=== PATIENT | female | born 1995 | race Caucasian/White ===

== ENCOUNTER → 2018-06-13 13:55 | Outpatient (CLI) | payer OTHER, SELFPAY ==
[2018-06-13 17:12] LABS: HIV - WCH Non-Reactive (Nonreactive)
[2018-06-13 19:45] LABS: Chlamydia Trachomatis by PCR Negative (Negative); Neisserai gonorrhoeae by PCR Negative (Negative); Probe Check PASS; Sample Adequacy Control PASS; Specimen Processing Control PASS
[2018-06-16 01:17] LABS: Rapid Plasmin Reagin (RPR) NONREACTIVE (NONREACTIVE)
[2018-06-16 03:07] LABS: HCV Quant. RNA PCR HCV Not Detected IU/mL (.)
[2018-06-16 12:45] LABS: HEPATITIS B SURFACE AG Negative (Negative); HSV 2 IgG 1.83 index (0.00-0.90)
== END ==
PROVIDERS: Family Provider Pediatrics; PCP Pediatrics; Referring Provider Obstetrics & Gynecology; Visit Provider Obstetrics & Gynecology
DX: Z11.3 Encounter for screening for infections with a predominantly sexual mode of transmission (principal)
CPT/HCPCS: 86592; 86695; 86696; 86703; 87070; 87205; 87340; 87491; 87522; 87591

== ENCOUNTER → 2018-06-30 15:44 | Outpatient (CLI) | payer OTHER, SELFPAY ==
[2018-07-07 09:52] LABS: HSV 1 IgG 1.04 index (0.00-0.90); HSV 2 IgG 1.81 index (0.00-0.90)
== END ==
PROVIDERS: Family Provider Pediatrics; PCP Pediatrics; Referring Provider Obstetrics & Gynecology; Visit Provider Obstetrics & Gynecology
DX: N76.0 Acute vaginitis (principal)
CPT/HCPCS: 36415; 86695; 86696

== ENCOUNTER → 2018-06-30 18:26 | Outpatient (CLI) | payer OTHER, SELFPAY ==
[2018-06-30 21:46] LABS: Chlamydia Trachomatis by PCR Negative (Negative); Neisserai gonorrhoeae by PCR Negative (Negative); Probe Check PASS; Sample Adequacy Control PASS; Specimen Processing Control PASS
== END ==
PROVIDERS: Family Provider Pediatrics; PCP Pediatrics; Referring Provider Obstetrics & Gynecology; Visit Provider Obstetrics & Gynecology
DX: N89.8 Other specified noninflammatory disorders of vagina (principal)
CPT/HCPCS: 87070; 87205; 87491; 87591

== ENCOUNTER 2019-02-19 23:19 | Emergency (ER) | payer OTHER, SELFPAY ==
[2019-02-19 23:19] VITALS: BP 145/83; PULSE 71; RESP 18; TEMP 36.8; O2SAT 97; BMI 53.4
--- NOTE | 2019-02-19 23:40 | ED.VIS.GEN ---
History of Present Illness Chief Complaint: Foreign Body Narrative: Patient is a 23-year-old otherwise healthy female who presents with possible vaginal foreign body. She believes she has a tampon stuck. She went to put in a new tampon today and was unable to pass it. She is uncertain if there is definitively a retained tampon or when she would have placed it although believes it was greater than 24 hours. She otherwise is without complaints. No fevers nausea vomiting abdominal pain. Past Medical History - Allergies and Home Meds Allergies/Adverse Reactions: Allergies cefprozil [From Cefzil] Allergy (Verified 02/19/19 23:21) Swelling Primary Care Physician: Damian Thomas DO [Primary Care Provider] - Past Medical History: None Surgical History: no surgical history Smoking Status: Never smoker Review of Systems All systems negative except as indicated Physical Exam Vital Signs/Narrative: Vital Signs Temp Pulse Resp BP Pulse Ox 02/19/19 23:19 98.2 F 71 18 145/83 H 97 General: Well nourished, Well developed Head: Normocephalic, Atraumatic Eyes: Perrl ENT: Moist mucous membranes Neck: Supple Cardiovascular: Regular rate, Regular rhythm Respiratory: No distress, CTA bilaterally Abdomen: Soft, Nontender : - - Normal, speculum examination revealed no foreign body, cervix was well visualized and appeared normal. Scant discharge, no active bleeding. Skin: Normal color Neurological: Alert Psychological: Normal affect ED Disposition - Plan for ED Patient: Diagnosis: Person with feared complaint, no diagnosis made, Encounter for medical screening examination Referrals: Damian Thomas DO [Primary Care Provider] -
--- NOTE | 2019-02-19 23:40 | ED.RN ---
pt states she went to place a new tampon and couldn't get the previous one out. pt states the lost tampon has been in for about 24hr.
[2019-02-20 00:32] VITALS: BP 138/82; PULSE 84; RESP 16; O2SAT 98
== END 2019-02-20 00:33 | disposition home or self-care (01) ==
LOC: ED 23:33
PROVIDERS: Emergency Provider Emergency Medicine; Family Provider Student in an Organized Health Care Education/Training Program; PCP Student in an Organized Health Care Education/Training Program
DX: Z00.00 Encounter for general adult medical examination without abnormal findings (principal); Z71.1 Person with feared health complaint in whom no diagnosis is made
CPT/HCPCS: 99282

== ENCOUNTER 2021-12-11 15:30 | Outpatient (CLI) | payer BC, SELFPAY | END 2021-12-11 23:59 | disposition home or self-care (01) | LOC: LABSPEC 15:33 | PROVIDERS: PCP Student in an Organized Health Care Education/Training Program; Visit Provider Otolaryngology | DX: J03.90 Acute tonsillitis, unspecified (principal) | CPT/HCPCS: 87070 ==

== ENCOUNTER 2023-07-03 20:30 | Emergency (ER) | payer BC, SELFPAY ==
[2023-07-03 20:30] VITALS: BP 137/93; PULSE 79; RESP 18; TEMP 36.3; O2SAT 96; BMI 51.7
[2023-07-03 21:22] LABS: Amphetamine Urine VISTA NEGATIVE (<1000 ng/mL); Barbiturate Urine VISTA NEGATIVE (< 200 ng/mL); Benzodiazepine Urine VISTA NEGATIVE (< 200 ng/mL); Cocaine Urine VISTA NEGATIVE (< 300 ng/mL); Ecstacy Urine VISTA NEGATIVE (< 500 ng/mL); Methadone Urine VISTA NEGATIVE (< 300 ng/mL); PCP Urine VISTA NEGATIVE (< 25 ng/mL); THC Urine VISTA NEGATIVE (< 50 ng/mL); Vista UDS pH Range 6
[2023-07-03 21:31] LABS: Internal QC Validated? YES +Cl - CLEAR BKGD
[2023-07-03 21:32] LABS: Pregnancy, Urine Negative Negative
[2023-07-03 21:48] LABS: Alcohol, Blood (Medical)-Serum < 3.0 mg/dL
--- NOTE | 2023-07-03 21:57 | EDS_ITS ---
HPI HPI - Psych History of Present Illness Chief Complaint: Depression Informant: patient Onset/Context/Timing Onset: Month(s) (2) Conflict: - (relationship) Timing: Continuous Narrative Narrative: Healthy 28-year-old female presents with suicidal thoughts and depression. This started 2 months ago when she and her boyfriend broke up, she discovered that he was cheating on her and she has had a hard time adjusting ever since. Father states she has been calling him a lot, she will call him every minute for an hour until he picks up, she states that she knows she needs to get over it but is having a hard time, and carson has been spending a lot of time with her family trying to figure out how she can feel better, and made the comment to them that she wished she would go to sleep and never wake up again, but she does not have a suicidal plan. She lives in [place], her parents live here locally. She has been undergoing some counseling for this, it is virtual from her home computer. [facility] Medical History (Updated 07/04/23 @ 00:[address] Isacc Prince MD) Anxiety Home Medications norethindrone 1 mg-ethinyl estradiol 20 mcg (24)-iron 75 mg (4) tablet (Rachael 24 Fe) 1 tab PO DAILY 07/03/23 [History Last Taken Unknown] escitalopram oxalate 10 mg tablet 10 mg PO DAILY #30 tabs 07/04/23 [Rx Last Taken Unknown] Allergy/AdvReac Type Severity Reaction Status Date / Time cefprozil [From Cefzil] Allergy Swelling Verified 07/03/23 20:30 Social History Smoking Status: Never smoker alcohol intake: never substance use type: does not use caffeine: Yes what type of physical activity do you participate in: walking frequency: 3-4 times per week seatbelt use: always do you feel safe at home: Yes additional social history: single- fulltime student OT ROS ROS ED Constitutional Constitutional ED: Denies chills or fever(s) Eyes Eyes: Denies change in vision or diplopia ENT ENT ED: Denies rhinorrhea or sore throat Cardiovascular Cardiovascular: Denies chest pain or palpitations Respiratory/Chest Respiratory/Chest: Denies cough or dyspnea Gastrointestinal Gastrointestinal: Denies abdominal pain, diarrhea, nausea or vomiting Genitourinary Genitourinary ED: Denies dysuria or hematuria Musculoskeletal Musculoskeletal: Denies back pain or neck pain Integumentary Denies abscess or rash Neurologic Neurologic: Denies headache(s), paresthesias or weakness Psychiatric Psychiatric: Reports depression, suicidal ideation and suicidal thoughts; Denies homicidal ideation EXAM Physical Exam Const Vital Signs: 07/03/23 20:30 07/03/23 22:00 Temperature 97.4 F L Temperature Source Temporal Pulse Rate 79 Respiratory Rate 18 18 Blood Pressure 137/93 H Blood Pressure Mean 107 Pulse Ox 96 Oxygen Delivery Method Room Air Positive well nourished and well developed General Appearance ED: well developed and NAD HEENT Reports moist mucous membranes normocephalic and atraumatic Eyes PERRL and EOMs intact bilaterally General Eye ED: Negative for scleral icterus Neck no lymphadenopathy and supple Resp normal respiratory effort and clear to auscultation bilaterally Cardio no murmurs Rate: regular rate Rhythm: regular rhythm GI non-tender and non-distended Auscultation: normoactive bowel sounds Palpation: soft Back/Spine no CVA tenderness and normal ROM Extremity normal to inspection General Extremety ED: Negative for edema General Extremity: Negative for edema Neuro oriented x3, CN's II-XII intact bilaterally, no sensory deficits noted and gait normal Sensorium / Orientation: alert Motor Exam: strength 5/5 throughout Psych mental status grossly normal, thought process normal, cooperative, speech normal, activity/motor behavior normal, denies hallucinations and denies homicidal ideation Mood & Affect: depressed Thought Content: suicidality Skin Lesions: no lesions Rashes: no rashes MDM MDM MDM Narrative Medical decision making narrative: , toxicology, alcohol negative. She is medically cleared and referred to crisis for further evaluation. Crisis came and spoke with the patient, she and I spoke with the patient and family at length. Patient was offered inpatient but she declines, she contracts for safety, mother is going to stay with her in [place] this week, and they plan on following up with psychiatry she is interested in getting started on an antidepressant. I am going to start her on escitalopram and give her the first months worth. We discussed the black box warning for suicidality and reasons to stop the medication and bring herself to medical/mental health attention. She is comfortable with that plan. Lab Data Attestation: I reviewed the patient's lab results. Labs: Laboratory Results - last 24 hr 07/03/23 07/03/23 21:00 21:05 Urine Test Negative Urine Opiates Screen NEGATIVE Urine Methadone Screen NEGATIVE Ur Barbiturates Screen NEGATIVE Ur Phencyclidine Scrn NEGATIVE Ur Amphetamines Screen NEGATIVE MDMA (Ecstasy) Screen NEGATIVE U Benzodiazepines Scrn NEGATIVE Urine Cocaine Screen NEGATIVE U Cannabinoids Screen NEGATIVE Ur Drug Screen Comment Ethyl Alcohol < 3.0 Management Discussion w/another healthcare provider: Behavioral health Discharge Plan Triage Chief Complaint: Depression ED Provider: Isacc Prince Dx/Rx/DC Orders Clinical Impression: Suicidal thoughts, Adjustment disorder Instructions: ED Adjustment Disorder Prescriptions: New escitalopram oxalate 10 mg tablet 10 mg PO DAILY Qty: 30 0RF No Action Rachael 24 Fe 1 mg-20 mcg (24)/75 mg (4) tablet 1 tab PO DAILY Referrals: Doctor,Your [Non-Staff] - As soon as possible (for reevaluation and/or referral to psychiatry) Disposition Disposition: Home, Self Care
[2023-07-03 22:00] VITALS: RESP 18
--- NOTE | 2023-07-03 22:24 | NURSING ---
CALLED CRISIS AT [phone]
== END 2023-07-04 00:51 | disposition home or self-care (01) ==
PROVIDERS: Emergency Provider Emergency Medicine; Visit Provider Emergency Medicine
DX: R45.851 Suicidal ideations (principal); F32.A Depression, unspecified; F43.20 Adjustment disorder, unspecified
CPT/HCPCS: 36415; 80307; 81025; 82077; 99282

== ENCOUNTER 2025-06-12 18:33 | Emergency (ER) | payer BC, SELFPAY ==
[2025-06-12 18:33] VITALS: BP 189/89; PULSE 91; RESP 16; TEMP 36.3; O2SAT 97; BMI 63.1
--- NOTE | 2025-06-12 21:42 | ED.RN ---
Pt's name called for placement in ED room from waiting room. Unable to locate pt. Assumed LWBS.
--- OUTSIDE RECORDS SUMMARY | 2025-06-12 22:00 | XMS RPT_ITS | CCD ---
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 Van Henry PA-C Work Phone: [facility] 04-28-2023 13:33-0400 Body weight 133.81 kg Van Henry PA-C Work Phone: [facility] 04-28-2023 13:33-0400 Diastolic blood pressure 86 mm[Hg] Van Henry PA-C Work Phone: [facility] 04-28-2023 13:33-0400 Heart rate 92 /min Van Henry PA-C Work Phone: [facility] 04-28-2023 13:33-0400 Respiratory rate 18 /min Van Henry PA-C Work Phone: [facility] 04-28-2023 13:33-0400 SaO2% (BldA) [Mass fraction] 94 % Van Henry PA-C Work Phone: [facility] 04-28-2023 13:33-0400 Systolic blood pressure 123 mm[Hg] Van Henry PA-C Work Phone: [facility] 12-11-2022 19:52-0400 Body height 167.6 cm Williams Blackmon MD Work Phone: [facility] 12-11-2022 19:52-0400 Body mass index (BMI) [Ratio] 43.58 kg/m2 Williams Blackmon MD Work Phone: [facility] 12-11-2022 19:52-0400 Body temperature 98.01 [degF] Williams Blackmon MD Work Phone: [facility] 12-11-2022 19:52-0400 Body weight 122.47 kg Williams Blackmon MD Work Phone: [facility] 12-11-2022 19:52-0400 Diastolic blood pressure 75 mm[Hg] Williams Blackmon MD Work Phone: [facility] 12-11-2022 19:52-0400 Heart rate 80 /min Williams Blackmon MD Work Phone: [facility] 12-11-2022 19:52-0400 Respiratory rate 16 /min Williams Blackmon MD Work Phone: [facility] 12-11-2022 19:52-0400 SaO2% (BldA) [Mass fraction] 97 % Williams Blackmon MD Work Phone: [facility] 12-11-2022 19:52-0400 Systolic blood pressure 113 mm[Hg] Williams Blackmon MD Work Phone: [facility] 05-14-2022 10:54-0400 Body height 167.6 cm Magalys Benjamin MD Work Phone: [facility] 05-14-2022 10:54-0400 Body mass index (BMI) [Ratio] 46.65 kg/m2 Magalys Benjamin MD Work Phone: [facility] 05-14-2022 10:54-0400 Body weight 131.09 kg Magalys Benjamin MD Work Phone: [facility] 05-14-2022 10:54-0400 Diastolic blood pressure 85 mm[Hg] Magalys Benjamin MD Work Phone: [facility] 05-14-2022 10:54-0400 Heart rate 61 /min Magalys Benjamin MD Work Phone: [facility] 05-14-2022 10:54-0400 Systolic blood pressure 124 mm[Hg] Magalys Benjamin MD Work Phone: [facility] 12-30-2021 16:35-0400 Body mass index (BMI) [Ratio] 46.48 kg/m2 Williams Blackmon MD Work Phone: [facility] 12-30-2021 16:35-0400 Body temperature 97.11 [degF] Williams Blackmon MD Work Phone: [facility] 12-30-2021 16:35-0400 Body weight 130.64 kg Williams Blackmon MD Work Phone: [facility] 12-30-2021 16:35-0400 Diastolic blood pressure 79 mm[Hg] Williams Blackmon MD Work Phone: [facility] 12-30-2021 16:35-0400 Heart rate 65 /min Williams Blackmon MD Work Phone: [facility] 12-30-2021 16:35-0400 Respiratory rate 16 /min Williams Blackmon MD Work Phone: [facility] 12-30-2021 16:35-0400 SaO2% (BldA) [Mass fraction] 99 % Williams Blackmon MD Work Phone: [facility] 12-30-2021 16:35-0400 Systolic blood pressure 116 mm[Hg] Williams Blackmon MD Work Phone: [facility] 11-26-2021 16:19-0500 Body mass index (BMI) [Ratio] 47.13 kg/m2 Kimberly Gio SCIENTIFIC PROGRAMMER Work Phone: [facility] 11-26-2021 16:19-0500 Body temperature 98.01 [degF] Kimberly Gio SCIENTIFIC PROGRAMMER Work Phone: [facility] 11-26-2021 16:19-0500 Body weight 132.45 kg Kimberly Gio SCIENTIFIC PROGRAMMER Work Phone: [facility] 11-26-2021 16:19-0500 Diastolic blood pressure 81 mm[Hg] Kimberly Gio SCIENTIFIC PROGRAMMER Work Phone: [facility] 11-26-2021 16:19-0500 Heart rate 80 /min Kimberly Gio SCIENTIFIC PROGRAMMER Work Phone: [facility] 11-26-2021 16:19-0500 Respiratory rate 16 /min Kimberly Powers SCIENTIFIC PROGRAMMER Work Phone: [facility] 11-26-2021 16:19-0500 SaO2% (BldA) [Mass fraction] 98 % Kimberly Powers SCIENTIFIC PROGRAMMER Work Phone: [facility] 11-26-2021 16:19-0500 Systolic blood pressure 127 mm[Hg] Kimberly Powers SCIENTIFIC PROGRAMMER Work Phone: [facility] 09-17-2021 14:19-0500 Body temperature 98.01 [degF] Luc Contreras DO Work Phone: [facility] 09-17-2021 14:19-0500 Heart rate 87 /min Luc Contreras DO Work Phone: [facility] 09-17-2021 14:19-0500 Respiratory rate 16 /min Luc Contreras DO Work Phone: [facility] 09-17-2021 14:19-0500 SaO2% (BldA) [Mass fraction] 98 % Luc Contreras DO Work Phone: [facility] 04-27-2021 14:41-0400 Body height 167.6 cm Magalys Benjamin MD Work Phone: [facility] 04-27-2021 14:41-0400 Body mass index (BMI) [Ratio] 47.78 kg/m2 Magalys Benjamin MD Work Phone: [facility] 04-27-2021 14:41-0400 Body weight 134.26 kg Magalys Benjamin MD Work Phone: [facility] 04-27-2021 14:41-0400 Diastolic blood pressure 74 mm[Hg] Magayls Benjamin MD Work Phone: [facility] 04-27-2021 14:41-0400 Heart rate 86 /min Magalys Benjamin MD Work Phone: [facility] 04-27-2021 14:41-0400 Systolic blood pressure 120 mm[Hg] Magalys Benjamin MD Work Phone: [facility] Encounters Encounter Date Encounter Type Care Provider Facility Start: 06-03-2025 End: 06-03-2025 ambulatory DAMIAN THOMAS Facility:[facility] Start: 06-03-2025 End: 06-03-2025 Follow-up encounter Kira Alexandershima Yen APRN.SCIENTIFIC PROGRAMMER Work Phone: [facility] [place] Start: 05-31-2025 End: 05-31-2025 ambulatory Inderjit Stewart MASTER IN CHANCERY.SCIENTIFIC PROGRAMMER Work Phone: [facility] [place] Comment on above: Heart monitor Start: 05-29-2025 End: 05-29-2025 Office outpatient visit 25 minutes Inderjit Stewart MASTER IN CHANCERY.SCIENTIFIC PROGRAMMER Work Phone: [facility] [place] Comment on above: Syncope and collapse (Primary Dx); Vaso vagal episode; Hyperlipidemia, mixed; Concussion without loss of consciousness, sequela Start: 05-29-2025 End: 05-29-2025 ambulatory DAMIAN THOMAS Facility:[facility] Start: 05-06-2025 End: 05-07-2025 Refill Blaire John MASTER IN CHANCERY.SCIENTIFIC PROGRAMMER Work Phone: [facility] [place] Comment on above: Refill Request Start: 04-24-2025 End: 04-24-2025 ambulatory [facility] Facility:[id number] Start: 04-23-2025 End: 04-23-2025 ambulatory DAMIAN THOMAS Facility:[facility] Start: 04-05-2025 End: 04-05-2025 Telephone encounter Damian Thomas DO Work Phone: [facility] [place] Comment on above: Heart monitor Start: 04-05-2025 End: 04-05-2025 ambulatory BLAIRE AGEN Facility:[facility] Start: 04-05-2025 End: 04-05-2025 Office outpatient new 45 minutes Blaire Haagen MASTER IN CHANCERY.SCIENTIFIC PROGRAMMER Work Phone: [facility] [place] Comment on above: Syncope and collapse (Primary Dx); Medication management; Elevated blood pressure reading without diagnosis of hypertension Start: 04-05-2025 End: 04-05-2025 ambulatory DAMIAN THOMAS Facility:[facility] Start: 03-29-2025 End: 04-02-2025 Refill Bandar Hoover SCIENTIFIC PROGRAMMER Work Phone: [facility] Comment on above: Generalized anxiety disorder; Major depressive disorder, recurrent, in full remission Start: 02-02-2025 ambulatory BANDAR HOOVER [facility] Start: 12-13-2024 End: 12-13-2024 Office outpatient visit 25 minutes Nilhenok Hoover SCIENTIFIC PROGRAMMER Work Phone: [facility] Comment on above: Generalized anxiety disorder (Primary Dx); Chronic posttraumatic stress disorder; Major depressive disorder, recurrent, in full remission; Major depressive disorder, recurrent episode, severe, with psychotic behavior (HCC) Start: 12-13-2024 End: 12-14-2024 ambulatory BANDAR HOOVER [facility] Start: 11-21-2024 End: 11-21-2024 Orders Only Nilhenok Hoover SCIENTIFIC PROGRAMMER Work Phone: [facility] Comment on above: MDD (major depressiv e disorder), recurrent episode, mild (Primary Dx); PORTER (generalized anxiety disorder) Start: 10-29-2024 End: 10-30-2024 Refill Curtis Gonzales SCIENTIFIC PROGRAMMER Work Phone: [facility] Start: 10-05-2024 End: 10-05-2024 Telephone encounter Inderjit Stewart APRN.SCIENTIFIC PROGRAMMER Work Phone: [facility] [place] Comment on above: Appointment Start: 09-21-2024 End: 09-21-2024 Patient encounter procedure Magalys Benjamin MD Work Phone: [facility] Start: 09-21-2024 End: 09-21-2024 Periodic preventive med est patient 18-39 yrs Magalys Benjamin MD Work Phone: [facility] Comment on above: Encounter for well w trang exam with routine gynecological exam (Primary Dx); Encounter for surveillance of contraceptive pills; Cervical cancer screening Start: 09-21-2024 End: 09-25-2024 ambulatory MAGALYS BENJAMIN [facility] Start: 09-21-2024 End: 09-25-2024 Encounter for gynecological examination (general) (routine) without abnormal findings MAGALYS BENJAMIN [facility] Start: 07-30-2024 End: 08-02-2024 Refill Magalys Benjamin MD Work Phone: [facility] Comment on above: Encounter for survei llance of contraceptive pills Start: 07-26-2024 End: 07-27-2024 Refill Albaalisson Nolantay Christian SCIENTIFIC PROGRAMMER Work Phone: [facility] Comment on above: Encounter for survei llance of contraceptive pills Start: 07-04-2024 End: 07-04-2024 Emergency department patient visit BENJY ALEXANDER [facility] Start: 06-04-2024 End: 06-04-2024 ambulatory CURTIS GONZALES [facility] Start: 06-04-2024 End: 06-04-2024 Office outpatient visit 25 minutes Curtis Gonzales SCIENTIFIC PROGRAMMER Work Phone: [facility] Comment on above: MDD (major depressiv e disorder), recurrent episode, mild (HCC) (Primary Dx); PORTER (generalized anxiety disorder); PTSD (post-traumatic stress disorder) Start: 04-24-2024 End: 04-25-2024 Refill Curtis Gonzales SCIENTIFIC PROGRAMMER Work Phone: [facility] Start: 11-29-2023 End: 11-29-2023 Office outpatient visit 25 minutes Curtis Gonzales SCIENTIFIC PROGRAMMER Work Phone: [facility] Comment on above: MDD (major depressiv e disorder), recurrent episode, mild (HCC) (Primary Dx); PORTER (generalized anxiety disorder) Start: 11-20-2023 Refill Magalys garcia MD Work Phone: [facility] Comment on above: Encounter for survei llance of contraceptive pills Start: 10-31-2023 End: 10-31-2023 Office outpatient visit 25 minutes Cutris Gonzales SCIENTIFIC PROGRAMMER Work Phone: [facility] Comment on above: MDD (major depressiv e disorder), recurrent episode, mild (HCC) (Primary Dx); PORTER (generalized anxiety disorder) Start: 10-25-2023 Refill Curtis Gonzales SCIENTIFIC PROGRAMMER Work Phone: [facility] Start: 09-30-2023 End: 09-30-2023 Office outpatient visit 25 minutes Curtis Gonzales SCIENTIFIC PROGRAMMER Work Phone: [facility] Comment on above: Adjustment disorder with mixed anxiety and depressed mood (Primary Dx); MDD (major depressive disorder), single episode, mild (HCC); PORTER (generalized anxiety disorder) Start: 09-26-2023 Orders Only Curtis Gonzales SCIENTIFIC PROGRAMMER Work Phone: [facility] Start: 09-25-2023 Refill Curtis Gonzales SCIENTIFIC PROGRAMMER Work Phone: [facility] Start: 08-23-2023 End: 08-23-2023 Office outpatient new 45 minutes Magalys Benjamin MD Work Phone: [facility] Comment on above: Adjustment disorder with mixed anxiety and depressed mood (Primary Dx); Other depression; Current moderate episode of major depressive disorder without prior episode (HCC); PORTER (generalized anxiety disorder) Start: 08-09-2023 End: 08-09-2023 Patient encounter procedure Magalys Benjamin MD Work Phone: [facility] Start: 08-09-2023 End: 08-09-2023 Periodic preventive med est patient 18-39 yrs Magalys Benjamin MD Work Phone: [facility] Comment on above: Encounter for well w trang exam with routine gynecological exam (Primary Dx); Encounter for surveillance of contraceptive pills; Other depression Start: 2023 End: 07-04-2023 Emergency department patient visit [facility] Work Phone: Start: 04-28-2023 End: 04-28-2023 ambulatory PHYSICIAN NO [facility] Start: 04-28-2023 End: 04-28-2023 Office outpatient visit 25 minutes Cherry Henry PA-C Work Phone: [facility] Comment on above: Acute rhinosinusitis (Primary Dx) Start: 12-11-2022 End: 12-11-2022 Office outpatient new 30 minutes Williams Blackmon MD [facility] Comment on above: Bronchitis (Primary Dx) Start: 12-11-2022 End: 12-11-2022 Orders Only Williams Blackmon MD [facility] Start: 05-14-2022 End: 05-14-2022 Patient encounter procedure Magalys Benjamin MD Work Phone: [facility] Start: 05-14-2022 End: 05-14-2022 Periodic preventive med est patient 18-39 yrs Magalys Benjamin MD Work Phone: [facility] Comment on above: Encounter for well w trang exam with routine gynecological exam (Primary Dx); Encounter for initial prescription of contraceptive pills Start: 03-17-2022 Refill Any Juarez RN [facility] Comment on above: Encounter for initia l prescription of contraceptive pills Start: 12-30-2021 End: 12-30-2021 Office outpatient visit 15 minutes Williams Blackmon MD Work Phone: [facility] Comment on above: Sore throat (Primary Dx) Start: 12-11-2021 End: 12-11-2021 Patient encounter procedure [facility]Laboratory, Specimen Start: 11-26-2021 End: 11-26-2021 Office outpatient new 30 minutes Kimberly Powers CNP Work Phone: [facility] Comment on above: Tonsillar hypertroph y (Primary Dx) Start: 09-17-2021 End: 09-17-2021 Office outpatient new 30 minutes Luc Contreras DO Work Phone: [facility] Comment on above: Suspected COVID-19 v irus infection (Primary Dx); Sore throat Start: 07-24-2021 Refill Magalys garcia MD Work Phone: [facility] Comment on above: Encounter for initia l prescription of contraceptive pills Start: 06-23-2021 Refill Magalys garcia MD Work Phone: [facility] Comment on above: Encounter for initia l prescription of contraceptive pills Start: 04-27-2021 End: 04-27-2021 Initial preventive medicine new pt age 18-39yrs Magalys Benjamin MD Work Phone: [facility] Comment on above: Encounter for gyneco logical examination without abnormal finding (Primary Dx); Encounter for initial prescription of contraceptive pills Start: 04-27-2021 End: 04-27-2021 Patient encounter status Magalys Benjamin MD Work Phone: [facility] Procedures Date Procedure Procedure Detail Performing Clinician Start: 09-21-2024 Microscopic observat ion [Identifier] in Cervix by Cyto stain Curtis Gonzales [facility] Work Phone: Start: 09-30-2023 Adult depression scr eening assessment Curtis Gonzales [facility] Work Phone: Start: 08-23-2023 Adult depression scr eening assessment Albaalisson Christian [facility] Work Phone: Start: 12-11-2021 End: 12-11-2021 Bacteria identification test Start: 09-17-2021 Iadna streptococcus group a amplified probe tq Luc Contreras DO Work Phone: Start: 04-27-2021 Iadna chlamydia trac homatis amplified probe tq Magalys Benjamin MD Work Phone: Start: 04-27-2021 Microscopic observat ion [Identifier] in Cervix by Cyto stain Magalys Benjamin MD Work Phone: Plan of Treatment Date Care Activity Detail Author Start: 05-29-2029 Tetanus vaccination Tetanus: Every 1 0yrs [facility] Start: 05-29-2029 Urine microalbumin profile DTa P,Tdap,Td Vaccine (10 - Td or Tdap) [facility] Start: 09-21-2027 Screening for malign ant neoplasm of cervix [facility] Start: 02-05-2026 End: 02-05-2026 Patient encounter procedure 02/05/2026 1:00 PM EDT Office Visit Family [facility] [address] [place] [address] Inderjit Stewart, MASTER IN CHANCERY.SCIENTIFIC PROGRAMMER [address] [place] [address] [id number] [facility] Comment on above: Establish Care Start: 11-20-2025 End: 11-20-2025 Patient encounter procedure 11/20/2025 1:00 PM EST Office Visit Family [facility] [address] [place] [id number] Inderjit Stewart, MASTER IN CHANCERY.SCIENTIFIC PROGRAMMER [address] [place], [place] [id number] [facility] Comment on above: Establish Care Start: 09-21-2025 Depression screening using PHQ-9 (Patient Health Questionnaire 9) score Depression Screening/Follow-Up (PHQ-2/9) [facility] Start: 09-21-2025 History and physical examination, annual for health maintenance Wellness Visit [facility] Start: 06-03-2025 End: 06-03-2025 Patient encounter procedure 06/03/2025 3:30 PM EDT Office Visit Vasculary Surgery [address] [place] [address] x: Syncope and collapse [R55]; Hyperlipidemia, mixed [E78.2] [facility] Comment on above: x: Syncope and colla pse [R55]; Hyperlipidemia, mixed [E78.2] Start: 05-20-2025 Influenza vaccination Influenza Vacc ine (#1) [facility] Start: 04-24-2025 End: 04-24-2025 Patient encounter procedure 04/24/2025 9:00 AM EDT Office Visit Neurology [address] [id number] Syncope and collapse [R55] Neurology Comment on above: Syncope and collapse [R55] Start: 04-23-2025 End: 04-23-2025 Patient encounter procedure Radiology Comment on above: Syncope and collapse [R55] Start: 04-05-2025 End: 07-05-2025 Choriogonadotropin.beta subunit [Units/volume] in Serum or Plasma [facility] Comment on above: Expected: 04/05/2025 , Expires: 07/05/2025 Start: 04-05-2025 End: 07-05-2025 Comprehensive metabolic 2000 panel - Serum or Plasma [facility] Work Phone: Comment on above: Expected: 04/05/2025 , Expires: 07/05/2025 Start: 04-05-2025 End: 07-05-2025 LIPID PANEL, NONFASTING [facility] Comment on above: Expected: 04/05/2025 , Expires: 07/05/2025 Start: 04-05-2025 End: 07-05-2025 Magnesium [Mass/volume] in Serum or Plasma [facility] Comment on above: Expected: 04/05/2025 , Expires: 07/05/2025 Start: 04-05-2025 End: 07-05-2025 Thyrotropin [Units/volume] in Serum or Plasma [facility] Comment on above: Expected: 04/05/2025 , Expires: 07/05/2025 Start: 03-14-2025 End: 03-14-2025 Patient encounter procedure 03/14/2025 3:30 PM EDT Office Visit [facility] [address] [place] [address] Bandar Hoover, SCIENTIFIC PROGRAMMER [address] [place] [address] [facility] Start: 01-29-2025 End: 01-29-2025 Patient encounter procedure 01/29/2025 9:00 AM EDT Office Visit [facility] [address] [place] [phone] Nancie Main, SCIENTIFIC PROGRAMMER [address] [place] [address] [facility] Start: 12-13-2024 End: 12-13-2024 Patient encounter procedure 12/13/2024 8:00 AM EDT Office Visit [facility] [address] [place] [phone] Bandar Hoover, SCIENTIFIC PROGRAMMER [address] [place] [address] [facility] Start: 12-05-2024 End: 12-05-2024 Patient encounter procedure 12/05/2024 3:40 PM EDT Office Visit [facility] Physician [address] [id number] Mouna Downs, SCIENTIFIC PROGRAMMER [address] [address] [facility] Physician [facility] Primary Care [facility] Start: 09-30-2024 Depression screening using PHQ-9 (Patient Health Questionnaire 9) score Depression Screening (PHQ-2/9) [facility] Start: 09-21-2024 End: 09-21-2024 Patient encounter procedure 09/21/2024 10:00 AM EST Office Visit [facility] Physician [facility] Obstetrics and Gynecology [address] [place] [phone] Magalys Benjamin MD [address] [place] [address] [facility] Obstetrics and Gynecology Start: 08-30-2024 Depression Remission Assessment (PHQ9) Depression Remission Assessment (PHQ9) [facility] Start: 08-23-2024 Depression screening using PHQ-9 (Patient Health Questionnaire 9) score Depression Screening (PHQ-2/9) [facility] Start: 08-09-2024 History and physical examination, annual for health maintenance Wellness Visit [facility] Start: 05-20-2024 COVID-19 Vaccine () COVID-19 Vaccine () [facility] Start: 05-20-2024 COVID-19 Vaccine () COVID-19 Vaccine () [facility] Start: 05-20-2024 Influenza vaccination Influenza Vacc ine (#1) [facility] Start: 04-27-2024 Screening for malign ant neoplasm of cervix [facility] Start: 11-29-2023 End: 11-29-2023 Patient encounter procedure 11/29/2023 2:30 PM EDT Office Visit [facility] [address] [place] [address] Curtis Gonzales, SCIENTIFIC PROGRAMMER [address] [place] [address] [facility] Start: 10-31-2023 End: 10-31-2023 Patient encounter procedure 10/31/2023 2:30 PM EST Office Visit [facility] [address] [place] [address] Curtis Gonzales, SCIENTIFIC PROGRAMMER [address] [place] [address] [facility] Start: 09-30-2023 End: 09-30-2023 Patient encounter procedure 09/30/2023 3:00 PM EST Office Visit [facility] [address] [place] [address] Curtis Gonzales, SCIENTIFIC PROGRAMMER [address] [place] [address] [facility] Start: 09-20-2023 End: 09-20-2023 Patient encounter procedure 09/20/2023 2:00 PM EST Office Visit [facility] [address] [place] [address] Curtis Gonzales, [facility] [address] [place] [address] [facility] Start: 07-04-2023 [facility] Start: 05-20-2023 COVID-19 Vaccine ( season) COVID-19 Vaccine ( season) [facility] Start: 05-20-2023 Influenza vaccination Sequenti al Influenza Vaccine (#1) [facility] Start: 05-14-2023 History and physical examination, annual for health maintenance Wellness Visit [facility] Start: 05-20-2022 Influenza vaccination [facility] Start: 05-14-2022 End: 05-14-2022 Patient encounter procedure 05/14/2022 Office Visit Obstetrics and Gynecology Magalys Benjamin MD [address] [place] [address] [facility] Obstetrics and Gynecology Start: 04-27-2022 History and physical examination, annual for health maintenance Wellness Visit [facility] Start: 03-05-2022 COVID-19 Vaccine (3 - Booster for Moderna series) COVID-19 Vaccine (3 - Booster for Moderna series) [facility] Start: 02-02-2022 COVID-19 Vaccine (3 - Booster for Moderna series) COVID-19 Vaccine (3 - Booster for Moderna series) [facility] Start: 10-30-2021 COVID-19 Vaccine (3 - Booster for Moderna series) COVID-19 Vaccine (3 - Booster for Moderna series) [facility] Start: 10-30-2021 COVID-19 Vaccine (3 - Moderna series) COVID-19 Vaccine (3 - Moderna series) [facility] Start: 05-20-2021 Influenza vaccination Sequenti al Influenza Vaccine (#1) [facility] Start: 2013 Anxiety Screening Anxiety Screening [facility] Start: 2013 Depression Screening Depression Scre ening [facility] Start: 2013 Hepatitis C screening Hepatitis C Sc reening [facility] Start: 2013 HIV screening HIV Screening [facility] Start: 2010 HIV screening HIV Screening [facility] Start: 2007 COVID-19 Vaccine (1) COVID-19 Vaccin e (1) [facility] Start: 2007 Depression screening using PHQ-9 (Patient Health Questionnaire 9) score [facility] Start: 2000 COVID-19 Vaccine (1) COVID-19 Vaccin e (1) [facility] Start: 1995 Screening for malign ant neoplasm of cervix Pap Smear [facility] End: 06-15-2025 B12/Folate B12/Folate Lab Routine Major depressive disorder, recurrent, in full remission 1 Occurrences starting 12/13/2024 until 06/15/2025 [facility] Work Phone: Comment on above: 1 Occurrences starti ng 12/13/2024 until 06/15/2025 End: 12-30-2022 Bacteria identified in Throat by Aerobe culture Throat Aerobic Culture Microbiology Routine Sore throat 1 Occurrences starting 12/30/2021 until 12/30/2022 [facility] Work Phone: Comment on above: 1 Occurrences starti ng 12/30/2021 until 12/30/2022 End: 06-15-2025 Complete blood count with white cell differential, manual CBC and Differential Lab Routine Major depressive disorder, recurrent, in full remission 1 Occurrences starting 12/13/2024 until 06/15/2025 [facility] Comment on above: 1 Occurrences starti ng 12/13/2024 until 06/15/2025 End: 12-13-2025 Comprehensive metabolic 2000 panel - Serum or Plasma Comprehensive Metabolic Panel Lab Routine Major depressive disorder, recurrent, in full remission 1 Occurrences starting 12/13/2024 until 12/13/2025 [facility] Comment on above: 1 Occurrences starti ng 12/13/2024 until 12/13/2025 ECG COMPLETE ECG COMPLETE ECG Routine Syncope and collapse Ordered: 04/05/2025 [facility] Comment on above: Ordered: 04/05/2025 End: 04-05-2026 Echocardiography ECHO Cardiology Routine Syncope and collapse 1 Occurrences starting 04/05/2025 until 04/05/2026 [facility] Comment on above: 1 Occurrences starti ng 04/05/2025 until 04/05/2026 End: 04-05-2026 EPIL EEG ROUTINE EPIL EEG ROUTINE NEUROLOGY Routine Syncope and collapse 1 Occurrences starting 04/05/2025 until 04/05/2026 [facility] Comment on above: 1 Occurrences starti ng 04/05/2025 until 04/05/2026 End: 12-13-2025 Lipid 1996 panel - Serum or Plasma Lipid Panel Lab Routine Major depressive disorder, recurrent episode, severe, with psychotic behavior (HCC) 1 Occurrences starting 12/13/2024 until 12/13/2025 [facility] Comment on above: 1 Occurrences starti ng 12/13/2024 until 12/13/2025 Microscopic examinat ion of vaginal Papanicolaou smear Thinprep Pap Smear Pathology and Cytology Routine Encounter for gynecological examination without abnormal finding Ordered: 04/27/2021 [facility] Comment on above: Ordered: 04/27/2021 Microscopic examinat ion of vaginal Papanicolaou smear Thinprep Pap Smear Pathology and Cytology Routine Cervical cancer screening Ordered: 09/21/2024 [facility] Work Phone: Comment on above: Ordered: 09/21/2024 End: 05-05-2026 MR Brain WO and W contrast IV MRI BRAIN WO/W IVCON Radiology Routine Syncope and collapse 1 Occurrences starting 04/05/2025 until 05/05/2026 [facility] Comment on above: 1 Occurrences starti ng 04/05/2025 until 05/05/2026 OUTSIDE VENDOR CARDI AC OUTPATIENT EXTENDED RHYTHM RECORDING (WITHOUT TELEMETRY) OUTSIDE VENDOR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 07-27-2024 Miscellaneous Notes documented in this encounter [facility] 06-04-2024 Instructions Curtis Gonzales CNP - 06/04/2024 3:51 PM EDT Please carefully review the following plan / instructions from today's appointment with Curtis Gonzales CNP and implement into your daily routine / medication administration: PLEASE ARRIVE 15 MINUTES TO YOUR NEXT FOLLOW-UP APPOINTMENT. ARRIVING LATER THAN 10 MINUTES TO YOUR SCHEDULE APPOINTMENT WILL RESULT IN YOUR APPOINTMENT BEING RESCHEDULED. 1) Take medications as prescribed. 2) Medication prescription(s) have been e-prescribed to the pharmacy on record. They should be available for pickup shortly. 3) The following LABS have been ordered: none 4) Follow up with your PCP for medical concerns as well as yearly well checks. 5) To request medication refills you must attend clinic visits regularly. Please call [facility] at [phone] and leave a message in regard to your requested medication refill. Please allow at least 3 business days to process medication refill requests, keeping in mind that you must attend clinic visits regularly. Voicemail is generally processed in under 24 hours.Please note that by law some prescriptions cannot be called to a pharmacy. Please include the following information with your message:Patient Name, Date of , Allergies, Name and dose of medication, How you would like to get the prescription (by mail, pick-up, or called to pharmacy), Pharmacy phone number (for prescriptions that can be called in). 6) Please call the [facility] at if needed, for questions, or other psychiatric concerns. 7) Avoid all alcohol and drugs. These agents adversely effect mental health/stability and can counteract many psychiatric medications. 8) Continue to stay as active as possible mentally, socially and physically (aka Behavioral Activation Therapy) 9) Call 911 or present to nearest emergency room if you are feeling unsafe or suicidal. Additionally individuals can call the Suicide Hotline locally at or nationally at . documented in this encounter [facility] 06-04-2024 History of Presen t illness Narrative [facility] (11) [facility] [address] [facility] [id number] Follow up [facility] 06/03/24 Curtis Gonzales MS, ARPN, PMHNP-BC Provider Location: Provider office Patient Location [employer] Superintendent: None Patient Location: Provider Office Patient: Jaimie Strong Date of : 1995 (28 y.o. female) PCP: Alana, Physician Virtual Visit Consent Statement: I discussed risks, benefits and alternatives of telemedicine consultation with the patient (and any accompanying persons) including the risks that the patient s personal health details and medical records will be discussed over interactive video/audio/telecommunication technology, may be recorded, and that there are inherent diagnostic limitations compared to [id number] evaluations. They elected to proceed with the telemedicine consultation. Assessment: Jaimie Strong is a 28 y.o. female presenting in context of OBGYN referral and is being seen for follow-up and medication management or treatment recommendations. The patient presents with a history of depression. Primary Psychiatric Diagnosis: MDD, recurrent, mild PTSD PORTER Recommendations / Plan: 1) Chart reviewed. 2) NARX / OARRS reviewed. 3) Available laboratory/imaging studies reviewed. 4) Psychiatric history obtained. 5) Brief supportive therapy provided Medication Recommendations: -Continue Lexapro to 20mg PO every day -Continue Prazosin 2mg at bedtime for nightmares -Continue Hydroxyzine 5-20mg TID/PRN anxiety Treatment options and alternatives reviewed with patient Risks, benefits, side effects of all psychiatric medications discussed with patient and informed consent obtained. All questions were answered. Level of Care: (X) Outpatient Medication Management () PHP () IOP () Recommend inpatient hospitalization Psychotherapy: Discussed recommendation for patient to pursue weekly psychotherapy, specifically cognitive behavioral therapy after program completion. Goals of treatment would be to identify maladaptive thought and behavior patterns and build improved coping skills. I provided the patient with resources and recommendations on where to find a therapist based on their insurance. Reviewed with patient: Pt routinely educated on working diagnosis and treatment plan. The pt was allowed to participate in the development/modification of the treatment plan using shared decision making and other pt centered practices and principles. The patient has been informed of the indications, benefits, risks, possible side effects and alternatives to the medical treatment listed above and they have expressed full and complete understanding / provided verbal informed consent. A safety plan including emergency psychiatric services discussed and agreed upon by the patient. No follow-ups on file. - A total of 15 minutes were spent with the patient during this encounter and over half of that time was spent on counseling and coordination of care. We discussed in depth the importance of the treatment of mental health concerns along with medical concerns. We discussed diagnostic considerations, treatment recommendations, and follow up plan. Reason for Appointment: Follow-up Others present: None Behavioral Health Screenings: 09/30/2023 3:00 PM 10/31/2023 2:00 PM PORTER-7 PORTER-7 Score 7 9 09/30/2023 3:00 PM 10/31/2023 2:00 PM PHQ-9 PHQ-9 Total Score 7 10 HPI / Interval History: Chart reviewed, patient seen in follow-up. Patient was last seen in this office on 11/29/23 where we: -Continue Lexapro to 20mg PO every day #90 -START Prazosin 2mg at bedtime for nightmares -START Hydroxyzine 5-20mg TID/PRN anxiety Upon interview, the patient is alert and fully oriented. The patient is pleasant, calm, cooperative and offers good eye contact. Chief Complaint: one year anniversary of break up Patient reports since their last appointment she has been doing well. Prazosin- has been working well besides a couple of instances after her ex tried to reach out to her Hydroxyzine- It's working out good, I've needed to take it a couple times but my anxiety has been pretty okay without it. Depression/Anxiety- Things have been going well, is coming up on the year anniversary of her break up which has brought up some old emotions but reports on a day to day basis overall she has been doing pretty well. Her ex has been trying to reach out using other phone numbers as she has him blocked. Reports when he tries to reach out to her that can trigger her anxiety but without those triggers her anxiety has been well managed. Motivation and energy have been a lot better.Denies currently feeling down or depressed. Safety- Denies SI/HI or SIB Sleep- I had some nightmares after my ex had tried to reach out to me and I didn't sleep very well, but after a few days I started feeling normal again. Averaging 6-7 hours of sleep most nights. Appetite- It's been normal. Relevant Medical/Family/Social History Medical History: No significant changes in medical history Family medical history: No significant changes in family medical history Home: No significant changes at home except as outlined in interval history Relationships: No change in peer relationships since last appointment Review of Systems/Medications Side Effects Medication: The patient denies medication side-effects and is medication compliant. Psychiatry: The patient denies suicidal ideation, homicidal ideation, self-harm ideations, auditory hallucinations, visual hallucinations, tactile hallucinations, delusions, obsessions and paranoia. General: Denies n/v/d/c, chest pain/palpitations, headaches or pain. Musculoskeletal: No abnormal or involuntary movement Skin: No rash OARRS/NARxCHECK Report Received and Assessed: Date controlled substance agreement signed: No data found Date of last drug screen: Physical Examination: There were no vitals taken for this visit. Laboratory and Additional Data Reviewed: No recent labs or additional data to review since last appointment. The following portions of the patient's history were reviewed and updated as appropriate: allergies, current medications, past medical history, past social history and problem list. Current Medications: Current Outpatient Medications: escitalopram oxalate (LEXAPRO) 20 MG tablet, Take 1 (one) tablet (20 mg total) by mouth daily ., Disp: 90 tablet, Rfl: 0 norethindrone-ethinyl estradiol-ferrous fumarate (LOESTIN 24 FE) 1 mg-20 mcg (24)/75 mg (4) per tablet, Take 1 (one) tablet by mouth daily ., Disp: 84 tablet, Rfl: 3 prazosin (MINIPRESS) 2 MG capsule, Take 1 (one) capsule (2 mg total) by mouth nightly ., Disp: 90 capsule, Rfl: 0 Review of Systems: Constitutional, cardiac, pulmonary, neurologic, musculoskeletal, GI, and systems reveiwed and negative except as noted above Mental Status Evaluation: General Appearance & Behavior: age appropriate, pleasant, cooperative, good eye contact Grooming & Hygiene: street clothes Psychomotor Activity: no psychomotor abnormalities or muscle atrophy noted Gait & Station stable gait and ability to rise from bed/chair without assistance Speech: normal rate, rhythym, volume, and spontaneity Flow of Thought: linear and goal directed Thought Associations: Intact Content of Thought: No evidence of suicidal ideations/homicidal ideations/psychosis Mood: okay Affect: mood congruent Insight: intact Judgment: intact Orientation: alert and oriented to person, place, time, and circumstances Memory: intact recent and remote Attention: intact Concentration: intact Language: fluent and intact Fund of Knowledge: estimated average intelligence DAFNE Addison MS, PMSUSANAP-BC [facility]- Nurse Practitioner 06/03/2024 6:42 PM documented in this encounter [facility] 06-04-2024 Note [facility] (11) [facility] [address] [place] [id number] Follow up [facility] 06/03/24 DAFNE Addison MS, PMMITCHEL-CONCHITA Provider Location: Provider office Patient Location [employer] Superintendent: None Patient Location: Provider Office Patient: Jaimie Strong Date of : 1995 (28 y.o. female) PCP: Alana, Physician Virtual Visit Consent Statement: I discussed risks, benefits and alternatives of telemedicine consultation with the patient (and any accompanying persons) including the risks that the patient's personal health details and medical records will be discussed over interactive video/audio/telecommunication technology, may be recorded, and that there are inherent diagnostic limitations compared to [id number] evaluations. They elected to proceed with the telemedicine consultation. Assessment: Jaimie Strong is a 28 y.o. female presenting in context of OBGYN referral and is being seen for follow-up and medication management or treatment recommendations. The patient presents with a history of depression. Primary Psychiatric Diagnosis: MDD, recurrent, mild PTSD PORTER Recommendations / Plan: 1) Chart reviewed. 2) NARX / OARRS reviewed. 3) Available laboratory/imaging studies reviewed. 4) Psychiatric history obtained. 5) Brief supportive therapy provided Medication Recommendations: -Continue Lexapro to 20mg PO every day -Continue Prazosin 2mg at bedtime for nightmares -Continue Hydroxyzine 5-20mg TID/PRN anxiety Treatment options and alternatives reviewed with patient Risks, benefits, side effects of all psychiatric medications discussed with patient and informed consent obtained. All questions were answered. Level of Care: (X) Outpatient Medication Management () PHP () IOP () Recommend inpatient hospitalization Psychotherapy: Discussed recommendation for patient to pursue weekly psychotherapy, specifically cognitive behavioral therapy after program completion. Goals of treatment would be to identify maladaptive thought and behavior patterns and build improved coping skills. I provided the patient with resources and recommendations on where to find a therapist based on their insurance. Reviewed with patient: Pt routinely educated on working diagnosis and treatment plan. The pt was allowed to participate in the development/modification of the treatment plan using shared decision making and other pt centered practices and principles. The patient has been informed of the indications, benefits, risks, possible side effects and alternatives to the medical treatment listed above and they have expressed full and complete understanding / provided verbal informed consent. A safety plan including emergency psychiatric services discussed and agreed upon by the patient. No follow-ups on file. - A total of 15 minutes were spent with the patient during this encounter and over half of that time was spent on counseling and coordination of care. We discussed in depth the importance of the treatment of mental health concerns along with medical concerns. We discussed diagnostic considerations, treatment recommendations, and follow up plan. Reason for Appointment: Follow-up Others present: None Behavioral Health Screenings: 09/30/2023 3:00 PM 10/31/2023 2:00 PM PORTER-7 PORTER-7 Score 7 9 09/30/2023 3:00 PM 10/31/2023 2:00 PM PHQ-9 PHQ-9 Total Score 7 10 HPI / Interval History: Chart reviewed, patient seen in follow-up. Patient was last seen in this office on 11/29/23 where we: -Continue Lexapro to 20mg PO every day #90 -START Prazosin 2mg at bedtime for nightmares -START Hydroxyzine 5-20mg TID/PRN anxiety Upon interview, the patient is alert and fully oriented. The patient is pleasant, calm, cooperative and offers good eye contact. Chief Complaint: one year anniversary of break up Patient reports since their last appointment she has been doing well. Prazosin- has been working well besides a couple of instances after her ex tried to reach out to her Hydroxyzine- It's working out good, I've needed to take it a couple times but my anxiety has been pretty okay without it. Depression/Anxiety- Things have been going well, is coming up on the year anniversary of her break up which has brought up some old emotions but reports on a day to day basis overall she has been doing pretty well. Her ex has been trying to reach out using other phone numbers as she has him blocked. Reports when he tries to reach out to her that can trigger her anxiety but without those triggers her anxiety has been well managed. Motivation and energy have been a lot better.Denies currently feeling down or depressed. Safety- Denies SI/HI or SIB Sleep- I had some nightmares after my ex had tried to reach out to me and I didn't sleep very well, but after a few days I started feeling normal again. (more content not included)... [facility] 04-25-2024 Telephone encounter Note Requested Prescriptions Pending Prescriptions Disp Refills escitalopram oxalate (LEXAPRO) 20 MG tablet 90 tablet 0 Sig: Take 1 (one) tablet (20 mg total) by mouth daily . Stella received [employer] message from patient requesting a refill on Escitalopram oxalate 20 mg. Stella reviewed chart patient OLLIE was on 11/29/23 patient was supplied a 90 day prescription with 0 refills.Patient instructed to return on or around 02/29/24 for a 30 month follow up appointment.No appointment is scheduled at this time. Stella will cc Munira Moser to review and schedule. [facility] 04-25-2024 Miscellaneous Notes Requested Prescriptions Pending Prescriptions Disp Refills escitalopram oxalate (LEXAPRO) 20 MG tablet 90 tablet 0 Sig: Take 1 (one) tablet (20 mg total) by mouth daily . Stella received [employer] message from patient requesting a refill on Escitalopram oxalate 20 mg. Stella reviewed chart patient OLLIE was on 11/29/23 patient was supplied a 90 day prescription with 0 refills.Patient instructed to return on or around 02/29/24 for a 30 month follow up appointment.No appointment is scheduled at this time. Stella will cc Munira Moser to review and schedule. documented in this encounter [facility] 11-29-2023 Instructions Curtis Gonzales CNP - 11/29/2023 2:45 PM EDT Please carefully review the following plan / instructions from today's appointment with Curtis Gonzales CNP and implement into your daily routine / medication administration: PLEASE ARRIVE 15 MINUTES TO YOUR NEXT FOLLOW-UP APPOINTMENT. ARRIVING LATER THAN 10 MINUTES TO YOUR SCHEDULE APPOINTMENT WILL RESULT IN YOUR APPOINTMENT BEING RESCHEDULED. Please call [phone] to schedule you next appointment for about 4 weeks from today. 1) Take medications as prescribed. 2) Medication prescription(s) have been e-prescribed to the pharmacy on record. They should be available for pickup shortly. 3) The following LABS have been ordered: none 4) Follow up with your PCP for medical concerns as well as yearly well checks. 5) To request medication refills you must attend clinic visits regularly. Please call [facility] at [phone] and leave a message in regard to your requested medication refill. Please allow at least 3 business days to process medication refill requests, keeping in mind that you must attend clinic visits regularly. Voicemail is generally processed in under 24 hours.Please note that by law some prescriptions cannot be called to a pharmacy. Please include the following information with your message:Patient Name, Date of , Allergies, Name and dose of medication, How you would like to get the prescription (by mail, pick-up, or called to pharmacy), Pharmacy phone number (for prescriptions that can be called in). 6) Please call the [facility] at if needed, for questions, or other psychiatric concerns. 7) Avoid all alcohol and drugs. These agents adversely effect mental health/stability and can counteract many psychiatric medications. 8) Continue to stay as active as possible mentally, socially and physically (aka Behavioral Activation Therapy) 9) Call 911 or present to nearest emergency room if you are feeling unsafe or suicidal. Additionally individuals can call the Suicide Hotline locally at or nationally at . documented in this encounter [facility] 11-29-2023 History of Presen t illness Narrative [facility] (11) [address] [phone] Follow up [facility] 11/29/23 Curtis Gonzales MS, ARPN, PMHNP- Provider Location: Provider office Patient Location [employer] Superintendent: None Patient Location: Provider Office Patient: Jaimie Strong Date of : 1995 (28 y.o. female) PCP: No, Physician Virtual Visit Consent Statement: I discussed risks, benefits and alternatives of telemedicine consultation with the patient (and any accompanying persons) including the risks that the patient s personal health details and medical records will be discussed over interactive video/audio/telecommunication technology, may be recorded, and that there are inherent diagnostic limitations compared to [id number] evaluations. They elected to proceed with the telemedicine consultation. Assessment: Jaimie Strong is a 28 y.o. female presenting in context of OBGYN referral and is being seen for follow-up and medication management or treatment recommendations. The patient presents with a history of depression. Primary Psychiatric Diagnosis: Adjustment disorder- High risk for developing PTSD or other stress related disorder given current symptoms. Major depressive disorder, single episode, mild PORTER Recommendations / Plan: 1) Chart reviewed. 2) NARX / OARRS reviewed. 3) Available laboratory/imaging studies reviewed. 4) Psychiatric history obtained. 5) Brief supportive therapy provided Medication Recommendations: -Continue Lexapro to 20mg PO every day #90 -START Proazosin 2mg at bedtime for nightmares -START Hydroxyzine 5-20mg TID/PRN anxiety Treatment options and alternatives reviewed with patient Risks, benefits, side effects of all psychiatric medications discussed with patient and informed consent obtained. All questions were answered. Level of Care: (X) Outpatient Medication Management () PHP () IOP () Recommend inpatient hospitalization Psychotherapy: Discussed recommendation for patient to pursue weekly psychotherapy, specifically cognitive behavioral therapy after program completion. Goals of treatment would be to identify maladaptive thought and behavior patterns and build improved coping skills. I provided the patient with resources and recommendations on where to find a therapist based on their insurance. Reviewed with patient: Pt routinely educated on working diagnosis and treatment plan. The pt was allowed to participate in the development/modification of the treatment plan using shared decision making and other pt centered practices and principles. The patient has been informed of the indications, benefits, risks, possible side effects and alternatives to the medical treatment listed above and they have expressed full and complete understanding / provided verbal informed consent. A safety plan including emergency psychiatric services discussed and agreed upon by the patient. No follow-ups on file. - A total of 15 minutes were spent with the patient during this encounter and over half of that time was spent on counseling and coordination of care. We discussed in depth the importance of the treatment of mental health concerns along with medical concerns. We discussed diagnostic considerations, treatment recommendations, and follow up plan. Reason for Appointment: Follow-up Others present: LAY OUT [employer]MER student Behavioral Health Screenings: 09/30/2023 3:00 PM 10/31/2023 2:00 PM PORTER-7 PORTER-7 Score 7 9 09/30/2023 3:00 PM 10/31/2023 2:00 PM PHQ-9 PHQ-9 Total Score 7 10 HPI / Interval History: Chart reviewed, patient seen in follow-up. Patient was last seen in this office on 10/31/23 where we: -Continue Lexapro to 20mg PO every day #90 -START Proazosin 2mg at bedtime for nightmares -START Hydroxyzine 5-20mg TID/PRN anxiety Upon interview, the patient is alert and fully oriented. The patient is pleasant, calm, cooperative and offers good eye contact. Chief Complaint: I've been feeling good Patient reports since their last appointment she has been doing well. I like where everything is at right now and I want to keep on doing what we've been doing. Prazosin- it's been going well, I have been taking it every night and I haven't had any nightmares recently.' Hydroxyzine- I've only taken it a couple times and it helped so I like having it there to take if I need to. Reports taking the 10mg dose with benefit. Depression- Reports mood overall has been about the same as last time I saw you. Has been able to do her day to day stuff but has days where she hits some lower points. Motivation has been better but her energy remains on the lower side I get tired very easily. Safety- Denies SI/HI or SIB Anxiety- Overall it's been manageable, even if if I have a moment where I'm feeling more anxious I am able to talk myself out of which is what I was soha to do before. Reports feeling anxious at least a couple times a week just being busy with work and there's some family dynamics going on that may be triggering it a little bit. There's also some trauma coming up of things that happened with my ex boyfriend as I'm dating someone new. But I've been able to talk to him about it and he's been understanding and supportive. Sleep- I've been staying asleep better, I haven't been waking up throughout the night anymore and once I fall asleep I stay asleep. Averaging 5-6 hours of sleep a night Appetite- it's been going fine. Relevant Medical/Family/Social History Medical History: No significant changes in medical history Family medical history: No significant changes in family medical history Home: No significant changes at home except as outlined in interval history Relationships: No change in peer relationships since last appointment Review of Systems/Medications Side Effects Medication: The patient denies medication side-effects and is medication compliant. Psychiatry: The patient denies suicidal ideation, homicidal ideation, self-harm ideations, auditory hallucinations, visual hallucinations, tactile hallucinations, delusions, obsessions and paranoia. General: Denies n/v/d/c, chest pain/palpitations, headaches or pain. Musculoskeletal: No abnormal or involuntary movement Skin: No rash OARRS/NARxCHECK Report Received and Assessed: No data found Date controlled substance agreement signed: No data found Date of last drug screen: No data found Functional Assessment: No data found Physical Examination: There were no vitals taken for this visit. Laboratory and Additional Data Reviewed: No recent labs or additional data to review since last appointment. The following portions of the patient's history were reviewed and updated as appropriate: allergies, current medications, past medical history, past social history and problem list. Current Medications: Current Outpatient Medications: escitalopram oxalate (LEXAPRO) 20 MG tablet, Take 1 (one) tablet (20 mg total) by mouth daily ., Disp: 90 tablet, Rfl: 0 hydrOXYzine (ATARAX) 10 MG tablet, Take 0.5 (one-half) tablet to 2 (two) tablets (5-20 mg total) by mouth 3 (three) times a day as needed for anxiety ., Disp: 90 tablet, Rfl: 0 norethindrone-ethinyl estradiol-ferrous fumarate (LOESTIN 24 FE) 1 mg-20 mcg (24)/75 mg (4) per tablet, Take 1 (one) tablet by mouth daily ., Disp: 84 tablet, Rfl: 3 prazosin (MINIPRESS) 2 MG capsule, Take 1 (one) capsule (2 mg total) by mouth nightly ., Disp: 30 capsule, Rfl: 0 Review of Systems: Constitutional, cardiac, pulmonary, neurologic, musculoskeletal, GI, and systems reveiwed and negative except as noted above Mental Status Evaluation: General Appearance & Behavior: age appropriate, pleasant, cooperative, good eye contact Grooming & Hygiene: street clothes Psychomotor Activity: no psychomotor abnormalities or muscle atrophy noted Gait & Station stable gait and ability to rise from bed/chair without assistance Speech: normal rate, rhythym, volume, and spontaneity Flow of Thought: linear and goal directed Thought Associations: Intact Content of Thought: No evidence of suicidal ideations/homicidal ideations/psychosis Mood: much better Affect: mood congruent Insight: intact Judgment: intact Orientation: alert and oriented to person, place, time, and circumstances Memory: intact recent and remote Attention: intact Concentration: intact Language: fluent and intact Fund of Knowledge: estimated average intelligence Curtis Gonzales MS, ARPN, PMHNP-[facility]- Nurse Practitioner 11/29/2023 10:38 AM documented in this encounter [facility] 10-31-2023 Instructions Curtis Gonzales CNP - 10/31/2023 2:48 PM EST Please carefully review the following plan / instructions from today's appointment with Curtis Gonzales CNP and implement into your daily routine / medication administration: PLEASE ARRIVE 15 MINUTES TO YOUR NEXT FOLLOW-UP APPOINTMENT. ARRIVING LATER THAN 10 MINUTES TO YOUR SCHEDULE APPOINTMENT WILL RESULT IN YOUR APPOINTMENT BEING RESCHEDULED. Please call [phone] to schedule you next appointment for about 4 weeks from today. 1) Take medications as prescribed. 2) Medication prescription(s) have been e-prescribed to the pharmacy on record. They should be available for pickup shortly. 3) The following LABS have been ordered: none 4) Follow up with your PCP for medical concerns as well as yearly well checks. 5) To request medication refills you must attend clinic visits regularly. Please call [facility] at [phone] and leave a message in regard to your requested medication refill. Please allow at least 3 business days to process medication refill requests, keeping in mind that you must attend clinic visits regularly. Voicemail is generally processed in under 24 hours.Please note that by law some prescriptions cannot be called to a pharmacy. Please include the following information with your message:Patient Name, Date of , Allergies, Name and dose of medication, How you would like to get the prescription (by mail, pick-up, or called to pharmacy), Pharmacy phone number (for prescriptions that can be called in). 6) Please call the [facility] at if needed, for questions, or other psychiatric concerns. 7) Avoid all alcohol and drugs. These agents adversely effect mental health/stability and can counteract many psychiatric medications. 8) Continue to stay as active as possible mentally, socially and physically (aka Behavioral Activation Therapy) 9) Call 911 or present to nearest emergency room if you are feeling unsafe or suicidal. Additionally individuals can call the Suicide Hotline locally at or nationally at . documented in this encounter [facility] 10-31-2023 History of Presen t illness Narrative [facility] (11) [address] [phone] Follow up [facility] 10/31/23 Curtis Gonzales MS, ARPN, PMHNP-BC Provider Location: Provider office Patient Location [employer] Superintendent: None Patient Location: Provider Office Patient: Jaimie Strong Date of : 1995 (28 y.o. female) PCP: Alana, Physician Assessment: Jaimie Strong is a 28 y.o. female presenting in context of OBGYN referral and is being seen for follow-up and medication management or treatment recommendations. The patient presents with a history of depression. Primary Psychiatric Diagnosis: Adjustment disorder- High risk for developing PTSD or other stress related disorder given current symptoms. Major depressive disorder, single episode, mild PORTER Recommendations / Plan: 1) Chart reviewed. 2) NARX / OARRS reviewed. 3) Available laboratory/imaging studies reviewed. 4) Psychiatric history obtained. 5) Brief supportive therapy provided Medication Recommendations: -Continue Lexapro to 20mg PO every day #90 -START Proazosin 2mg at bedtime for nightmares -START Hydroxyzine 5-20mg TID/PRN anxiety Treatment options and alternatives reviewed with patient Risks, benefits, side effects of all psychiatric medications discussed with patient and informed consent obtained. All questions were answered. Level of Care: (X) Outpatient Medication Management () PHP () IOP () Recommend inpatient hospitalization Psychotherapy: Discussed recommendation for patient to pursue weekly psychotherapy, specifically cognitive behavioral therapy after program completion. Goals of treatment would be to identify maladaptive thought and behavior patterns and build improved coping skills. I provided the patient with resources and recommendations on where to find a therapist based on their insurance. Reviewed with patient: Pt routinely educated on working diagnosis and treatment plan. The pt was allowed to participate in the development/modification of the treatment plan using shared decision making and other pt centered practices and principles. The patient has been informed of the indications, benefits, risks, possible side effects and alternatives to the medical treatment listed above and they have expressed full and complete understanding / provided verbal informed consent. A safety plan including emergency psychiatric services discussed and agreed upon by the patient. No follow-ups on file. - A total of 20 minutes were spent with the patient during this encounter and over half of that time was spent on counseling and coordination of care. We discussed in depth the importance of the treatment of mental health concerns along with medical concerns. We discussed diagnostic considerations, treatment recommendations, and follow up plan. Reason for Appointment: Follow-up Others present: none Behavioral Health Screenings: 09/30/2023 3:00 PM 10/31/2023 2:00 PM PORTER-7 PORTER-7 Score 7 9 09/30/2023 3:00 PM 10/31/2023 2:00 PM PHQ-9 PHQ-9 Total Score 7 10 HPI / Interval History: Chart reviewed, patient seen in follow-up. Patient was last seen in this office on 09/30/23 where we: -Continue Lexapro to 20mg PO every day #90 -Discontinue Prazosin- unsure of benefit, however if nightmares increase once off the medication will consider re-adding at that time Upon interview, the patient is alert and fully oriented. The patient is pleasant, calm, cooperative and offers good eye contact. Chief Complaint: I've been feeling good Patient reports since their last appointment she has been doing well. Medications- I feel it's been good, I definitely feel good on the Lexapro. Depression- I still feel like the depression can come in waves, I'll be doing well for a while then I'll have days where I feel lower and have difficulty motivating myself. But it's not happening as often and I can pull myself out of it easier. Motivation and energy have been okay. The weekends have been hard If I don't have any scheduled then the weekends can be harder for me bc I'm not in my usually structure or routine. Feels when she doesn't have any thing to occupy her mind she has more time to sit around and think. Safety- Denies SI/HI or SIB Anxiety- I've had more episodes of anxiety here lately, it's not on a daily anxiety thing and I know the things that are triggering it so it ore's situational. Had a couple panic attacks after having nightmares. She ended up cancelling a meet up with her friends bc she was having a hard time claming herself down after the panic attack. Recent stressors- I'm in the beginning stages of a new relationship which has been triggering a lot of things. Sleep- I do feel like I've had more occurences of nightmares and panic symptoms that stem from those nightmares. Appetite- It's been fine. Has been trying to force herself to actually eat lunch and not smith through it. Relevant Medical/Family/Social History Medical History: No significant changes in medical history Family medical history: No significant changes in family medical history Home: No significant changes at home except as outlined in interval history Relationships: No change in peer relationships since last appointment Review of Systems/Medications Side Effects Medication: The patient denies medication side-effects and is medication compliant. Psychiatry: The patient denies suicidal ideation, homicidal ideation, self-harm ideations, auditory hallucinations, visual hallucinations, tactile hallucinations, delusions, obsessions and paranoia. General: Denies n/v/d/c, chest pain/palpitations, headaches or pain. Musculoskeletal: No abnormal or involuntary movement Skin: No rash OARRS/NARxCHECK Report Received and Assessed: No data found Date controlled substance agreement signed: No data found Date of last drug screen: No data found Functional Assessment: No data found Physical Examination: There were no vitals taken for this visit. Laboratory and Additional Data Reviewed: No recent labs or additional data to review since last appointment. The following portions of the patient's history were reviewed and updated as appropriate: allergies, current medications, past medical history, past social history and problem list. Current Medications: Current Outpatient Medications: escitalopram oxalate (LEXAPRO) 20 MG tablet, Take 1 (one) tablet (20 mg total) by mouth daily ., Disp: 90 tablet, Rfl: 0 norethindrone-ethinyl estradiol-ferrous fumarate (LOESTIN 24 FE) 1 mg-20 mcg (24)/75 mg (4) per tablet, Take 1 (one) tablet by mouth daily ., Disp: 84 tablet, Rfl: 3 prazosin (MINIPRESS) 1 MG capsule, Take 1 (one) capsule (1 mg total) by mouth nightly ., Disp: 30 capsule, Rfl: 0 Review of Systems: Constitutional, cardiac, pulmonary, neurologic, musculoskeletal, GI, and systems reveiwed and negative except as noted above Mental Status Evaluation: General Appearance & Behavior: age appropriate, pleasant, cooperative, good eye contact Grooming & Hygiene: street clothes Psychomotor Activity: no psychomotor abnormalities or muscle atrophy noted Gait & Station stable gait and ability to rise from bed/chair without assistance Speech: normal rate, rhythym, volume, and spontaneity Flow of Thought: linear and goal directed Thought Associations: Intact Content of Thought: No evidence of suicidal ideations/homicidal ideations/psychosis Mood: much better Affect: mood congruent Insight: intact Judgment: intact Orientation: alert and oriented to person, place, time, and circumstances Memory: intact recent and remote Attention: intact Concentration: intact Language: fluent and intact Fund of Knowledge: estimated average intelligence Curtis Gonzales MS, ARPN, PMHNP-[facility] Behavioral Medicine- Nurse Practitioner 10/31/2023 2:39 PM documented in this encounter [facility] 10-25-2023 Miscellaneous Notes Requested Prescriptions Pending Prescriptions Disp Refills escitalopram oxalate (LEXAPRO) 20 MG tablet 90 tablet 0 Sig: Take 1 (one) tablet (20 mg total) by mouth daily . MA received a refill request from patient requesting Lexapro 20 MG Tablets. Chart reviewed and patients OLLIE was on 09/30/2023 and has a follow up scheduled on 10/31/2023. Patients last prescription was sent over on 09/30/2023 for a 30 day supply and no refill. documented in this encounter [facility] 10-25-2023 Telephone encounter Note Requested Prescriptions Pending Prescriptions Disp Refills escitalopram oxalate (LEXAPRO) 20 MG tablet 90 tablet 0 Sig: Take 1 (one) tablet (20 mg total) by mouth daily . MA received a refill request from patient requesting Lexapro 20 MG Tablets. Chart reviewed and patients OLLIE was on 09/30/2023 and has a follow up scheduled on 10/31/2023. Patients last prescription was sent over on 09/30/2023 for a 30 day supply and no refill. [facility] 09-30-2023 Instructions Curtis Gonzales CNP - 09/30/2023 3:14 PM EST Please carefully review the following plan / instructions from today's appointment with Curtis Gonzales CNP and implement into your daily routine / medication administration: PLEASE ARRIVE 15 MINUTES TO YOUR NEXT FOLLOW-UP APPOINTMENT. ARRIVING LATER THAN 10 MINUTES TO YOUR SCHEDULE APPOINTMENT WILL RESULT IN YOUR APPOINTMENT BEING RESCHEDULED. Please call [phone] to schedule you next appointment for about 4 weeks from today. 1) Take medications as prescribed. 2) Medication prescription(s) have been e-prescribed to the pharmacy on record. They should be available for pickup shortly. 3) The following LABS have been ordered: none 4) Follow up with your PCP for medical concerns as well as yearly well checks. 5) To request medication refills you must attend clinic visits regularly. Please call [facility] at [phone] and leave a message in regard to your requested medication refill. Please allow at least 3 business days to process medication refill requests, keeping in mind that you must attend clinic visits regularly. Voicemail is generally processed in under 24 hours.Please note that by law some prescriptions cannot be called to a pharmacy. Please include the following information with your message:Patient Name, Date of , Allergies, Name and dose of medication, How you would like to get the prescription (by mail, pick-up, or called to pharmacy), Pharmacy phone number (for prescriptions that can be called in). 6) Please call the [facility] at if needed, for questions, or other psychiatric concerns. 7) Avoid all alcohol and drugs. These agents adversely effect mental health/stability and can counteract many psychiatric medications. 8) Continue to stay as active as possible mentally, socially and physically (aka Behavioral Activation Therapy) 9) Call 911 or present to nearest emergency room if you are feeling unsafe or suicidal. Additionally individuals can call the Suicide Hotline locally at or nationally at . documented in this encounter [facility] 09-30-2023 History of Presen t illness Narrative [facility] [phone] [address] [phone] Follow up [facility] 09/30/23 Curtis Gonzales MS, ARPN, PMHNP-BC Provider Location: Provider office Patient Location [employer] Superintendent: None Patient Location: Provider Office Patient: Jaimie Strong Date of : 1995 (28 y.o. female) PCP: Alana, Physician Assessment: Jaimie Strong is a 28 y.o. female presenting in context of OBGYN referral and is being seen for follow-up and medication management or treatment recommendations. The patient presents with a history of depression. Primary Psychiatric Diagnosis: Adjustment disorder- High risk for developing PTSD or other stress related disorder given current symptoms. Major depressive disorder, single episode, mild PORTER Recommendations / Plan: 1) Chart reviewed. 2) NARX / OARRS reviewed. 3) Available laboratory/imaging studies reviewed. 4) Psychiatric history obtained. 5) Brief supportive therapy provided Medication Recommendations: -Continue Lexapro to 20mg PO every day #90 -Discontinue Prazosin- unsure of benefit, however if nightmares increase once off the medication will consider re-adding at that time Treatment options and alternatives reviewed with patient Risks, benefits, side effects of all psychiatric medications discussed with patient and informed consent obtained. All questions were answered. Level of Care: (X) Outpatient Medication Management () PHP () IOP () Recommend inpatient hospitalization Psychotherapy: Discussed recommendation for patient to pursue weekly psychotherapy, specifically cognitive behavioral therapy after program completion. Goals of treatment would be to identify maladaptive thought and behavior patterns and build improved coping skills. I provided the patient with resources and recommendations on where to find a therapist based on their insurance. Reviewed with patient: Pt routinely educated on working diagnosis and treatment plan. The pt was allowed to participate in the development/modification of the treatment plan using shared decision making and other pt centered practices and principles. The patient has been informed of the indications, benefits, risks, possible side effects and alternatives to the medical treatment listed above and they have expressed full and complete understanding / provided verbal informed consent. A safety plan including emergency psychiatric services discussed and agreed upon by the patient. No follow-ups on file. - A total of 20 minutes were spent with the patient during this encounter and over half of that time was spent on counseling and coordination of care. We discussed in depth the importance of the treatment of mental health concerns along with medical concerns. We discussed diagnostic considerations, treatment recommendations, and follow up plan. Reason for Appointment: Follow-up Others present: none Behavioral Health Screenings: 08/23/2023 1:45 PM PORTER-7 PORTER-7 Score 8 08/23/2023 1:45 PM PHQ-9 PHQ-9 Total Score 9 HPI / Interval History: Chart reviewed, patient seen in follow-up. Patient was last seen in this office on 08/23/23 where we: -Increase Lexapro to 20mg PO every day -Start Prazosin 1 mg PO Q HS Upon interview, the patient is alert and fully oriented. The patient is pleasant, calm, cooperative and offers good eye contact. Chief Complaint: I've been feeling good Patient reports since their last appointment she has been doing well. Lexapro- the increase went good, I haven't noticed any adverse side effects or anything and I've been feeling good so I'd like to continue with that for sure. Prazosin- I haven't noticed much of a difference with it, when I came here last they were already lessened so I'm not sure if it's doing anywhere. Last night mare was about two weeks ago. Depression- I feel like generally I have better motivation for things, things feel less daunting to try to accomplish. Continue to have daytime fatigue. She isn't self isolating as much I just feel a lot better. Has been able to experience more interest and pleasure in things. Safety- Denies SI/HI or SIB Anxiety- it's been better, I had one panic moment over the holidays but other than that I feel I can manage it. The anxiety feels more at baseline of where it was before. Recent stressors- work is stressful, and there's some family stuff going on but nothing crazy or outlandish. Sleep- Continues to have difficulty falling asleep. Averaging 5 hours of sleep a night. Appetite- It's been better, I've been more motivated to cook and meal prep so I haven't been skipping meals or anything. Relevant Medical/Family/Social History Medical History: No significant changes in medical history Family medical history: No significant changes in family medical history Home: No significant changes at home except as outlined in interval history Relationships: No change in peer relationships since last appointment Review of Systems/Medications Side Effects Medication: The patient denies medication side-effects and is medication compliant. Psychiatry: The patient denies suicidal ideation, homicidal ideation, self-harm ideations, auditory hallucinations, visual hallucinations, tactile hallucinations, delusions, obsessions and paranoia. General: Denies n/v/d/c, chest pain/palpitations, headaches or pain. Musculoskeletal: No abnormal or involuntary movement Skin: No rash OARRS/NARxCHECK Report Received and Assessed: No data found Date controlled substance agreement signed: No data found Date of last drug screen: No data found Functional Assessment: No data found Physical Examination: There were no vitals taken for this visit. Laboratory and Additional Data Reviewed: No recent labs or additional data to review since last appointment. The following portions of the patient's history were reviewed and updated as appropriate: allergies, current medications, past medical history, past social history and problem list. Current Medications: Current Outpatient Medications: escitalopram oxalate (LEXAPRO) 20 MG tablet, Take 1 (one) tablet (20 mg total) by mouth daily ., Disp: 30 tablet, Rfl: 0 norethindrone-ethinyl estradiol-ferrous fumarate (LOESTIN 24 FE) 1 mg-20 mcg (24)/75 mg (4) per tablet, Take 1 (one) tablet by mouth daily ., Disp: 84 tablet, Rfl: 3 prazosin (MINIPRESS) 1 MG capsule, Take 1 (one) capsule (1 mg total) by mouth nightly ., Disp: 30 capsule, Rfl: 0 Review of Systems: Constitutional, cardiac, pulmonary, neurologic, musculoskeletal, GI, and systems reveiwed and negative except as noted above Mental Status Evaluation: General Appearance & Behavior: age appropriate, pleasant, cooperative, good eye contact Grooming & Hygiene: street clothes Psychomotor Activity: no psychomotor abnormalities or muscle atrophy noted Gait & Station stable gait and ability to rise from bed/chair without assistance Speech: normal rate, rhythym, volume, and spontaneity Flow of Thought: linear and goal directed Thought Associations: Intact Content of Thought: No evidence of suicidal ideations/homicidal ideations/psychosis Mood: much better Affect: mood congruent Insight: intact Judgment: intact Orientation: alert and oriented to person, place, time, and circumstances Memory: intact recent and remote Attention: intact Concentration: intact Language: fluent and intact Fund of Knowledge: estimated average intelligence Curtis Gonzales MS, DAFNE, PMHNP-[facility] Medicine- Nurse Practitioner 09/30/2023 12:37 PM documented in this encounter [facility] 09-26-2023 Telephone encounter Note Requested Prescriptions Pending Prescriptions Disp Refills escitalopram oxalate (LEXAPRO) 20 MG tablet 30 tablet 0 Sig: Take 1 (one) tablet (20 mg total) by mouth daily . MA received a refill request from patient through [employer] requesting Lexapro 20 MG tablet. Chart reviewed and patient OLLIE was on 08/23/23 and has a follow up on 09/30/23. Patient last medication was sent over for 08/23/23 for a 30 days supply and 0 refill. MA will CC Darlene Zhou to contact patient and scheduled. [facility] 09-26-2023 Miscellaneous Notes Requested Prescriptions Pending Prescriptions Disp Refills escitalopram oxalate (LEXAPRO) 20 MG tablet 30 tablet 0 Sig: Take 1 (one) tablet (20 mg total) by mouth daily . MA received a refill request from patient through [employer] requesting Lexapro 20 MG tablet. Chart reviewed and patient OLLIE was on 08/23/23 and has a follow up on 09/30/23. Patient last medication was sent over for 08/23/23 for a 30 days supply and 0 refill. STELLA will CC Darlene Zhou to contact patient and scheduled. Requested Prescriptions Pending Prescriptions Disp Refills escitalopram oxalate (LEXAPRO) 20 MG tablet 30 tablet 0 Sig: Take 1 (one) tablet (20 mg total) by mouth daily . STELLA received a refill request from patient through [employer] requesting Lexapro 20 MG tablet. Chart reviewed and patient OLLIE was on 08/23/23 and has a follow up on 09/30/23. Patient last medication was sent over on 08/23/23 for a 30 days supply and 0 refill. STELLA will CC Darlene Zhou to contact patient and scheduled. documented in this encounter [facility] 09-26-2023 Telephone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 Extremity normal to inspection General Extremety ED: Negative for edema General Extremity: Negative for edema Neuro oriented x3, CN's II-XII intact bilaterally, no sensory deficits noted and gait normal Sensorium / Orientation: alert Motor Exam: strength 5/5 throughout Psych mental status grossly normal, thought process normal, cooperative, speech normal, activity/motor behavior normal, denies hallucinations and denies homicidal ideation Mood & Affect: depressed Thought Content: suicidality Skin Lesions: no lesions Rashes: no rashes MDM MDM MDM Narrative Medical decision making narrative: , toxicology, alcohol negative. She is medically cleared and referred to crisis for further evaluation. Crisis came and spoke with the patient, she and I spoke with the patient and family at length. Patient was offered inpatient but she declines, she contractsfor safety, mother is going to stay with her in [place] this week, and they plan on following up with psychiatry she is interested in getting started on an antidepressant. I am going to start her on escitalopram and give her the first months worth. We discussed the black box warning for suicidality and reasons tostop the medication and bring herself to medical/mental health attention. She is comfortable with that plan. Lab Data Attestation: I reviewed the patient's lab results. Labs: Laboratory Results - last 24 hr 07/03/23 07/03/23 21:00 21:05 Urine Test Negative Urine Opiates Screen NEGATIVE Urine Methadone Screen NEGATIVE Ur Barbiturates Screen NEGATIVE Ur Phencyclidine Scrn NEGATIVE Ur Amphetamines Screen NEGATIVE MDMA (Ecstasy) Screen NEGATIVE U Benzodiazepines Scrn NEGATIVE Urine Cocaine Screen NEGATIVE U Cannabinoids Screen NEGATIVE Ur Drug Screen Comment Ethyl Alcohol < 3.0 Management Discussion w/another healthcare provider: Behavioral health Discharge Plan Triage Chief Complaint: Depression ED Provider: Isacc rPince Dx/Rx/DC Orders Clinical Impression: Suicidal thoughts, Adjustment disorder Instructions: ED Adjustment Disorder Prescriptions: New escitalopram oxalate 10 mg tablet 10 mg PO DAILY Qty: 30 0RF No Action Rachael 24 Fe 1 mg-20 mcg (24)/75 mg (4) tablet 1 tab PO DAILY Referrals: Doctor,Your [Non-Staff] - As soon as possible (for reevaluation and/or referral to psychiatry) Disposition Disposition: Home, Self Care What to do if you have Problems For any increased pain, shortness of breath, bleeding, nausea or vomiting, chestpain, or any unexpected problems, contact your Primary Care Provider. Call [facility] ([phone]) or report to the closest Emergency Room. Call 911 if necessary. 07/04/23 0013 <Electronically signed by Isacc Prince MD> Cosigner Signature (if applicable): CC: ~ Signed [facility] Work Phone: [phone] 952-625308-10-2023 History of Present illness Narrative* Cherry Henry PA-C - 04/28/2023 2:01 PM EDT Images from the original note were not included. Patient Name: [facility] Location: Jaimie Strong [address] [facility] [id number] Date Of : Date Of Visit: 1995 04/28/2023 MRN# Provider: [id number] Cherry Henry PA-C Chief Complaint Patient presents with URI Starting Tuesday had a bad cough, congestion, drainage and sore throat hurts to breathe chest feels like a rattle Assessment & Plan 1. Acute rhinosinusitis Return if symptoms worsen or fail to improve. Home care and f/u pr AVS Additional Clinical Comments Discussed over the counter medications for symptomatic management and side effects of medications. Recommended taking all medications with food and to stop medications if they develop any signs of anallergic reaction. Educated patient and/or guardian about signs and symptoms that would warrant further immediate evaluation. Recommended that they should return to urgent care, make an appointment with their family physician, or go to the emergency room if symptoms persist or get acutely worse. Recommended follow upwithin the next week with their PCP or to get established with a PCP soon in order to follow up appropriately. Subjective 27 y.o. female presents with URI (Starting Tuesday had a bad cough, congestion, drainage and sore throat hurts to breathe chest feels like a rattle ) URI This is a new problem. Episode onset: 4 days. The problem has been gradually worsening. There has been no fever. Associated symptoms include congestion, coughing, headaches, rhinorrhea, sinus pain (under eyes) and vomiting (PTE). Pertinent negatives include no diarrhea, nausea or wheezing. Treatments tried: mucinex, tylenol. The treatment provided mild relief. Review Of Systems Review of Systems Constitutional: Positive for chills and fatigue. Negative for fever. HENT: Positive for congestion, rhinorrhea, sinus pressure and sinus pain (under eyes). Respiratory: Positive for cough. Negative for chest tightness and wheezing. Gastrointestinal: Positive for vomiting (PTE). Negative for diarrhea and nausea. Allergic/Immunologic: Positive for environmental allergies. Neurological: Positive for headaches. Negative for dizziness and light-headedness. Medical History History reviewed. No pertinent past medical history. Past Surgical History: Procedure Laterality Date TONSILLECTOMY There is no problem list on file for this patient. Social History Social History Tobacco Use Smoking status: Never Smokeless tobacco: Never Vaping Use Vaping Use: Never used Substance Use Topics Alcohol use: Yes Comment: socially Drug use: Never Family History Family History Problem Relation Age of Onset No Known Problems Mother No Known Problems Father Objective Physical Exam BP 123/86 (BP Location: Left arm, Patient Position: Sitting, BP Cuff Size: X- large Adult) Comment (BP Location): forearm Pulse 92 Temp 97.1 F (36.2 C) (Tympanic) Resp 18 Ht 5' 6 Wt 133.8 kg (295 lb) LMP (LMP Unknown) SpO2 94% BMI 47.61 kg/m Vision/Hearing Exam:No results found. Physical Exam Procedure Notes Procedures Results No results found for this or any previous visit (from the past 168 hour(s)). No orders to display Orders Placed This Visit No orders of the defined types were placed in this encounter. Medication List At End Of Visit Current Outpatient Medications Medication Sig Dispense Refill norethindrone-ethinyl estradiol-ferrous fumarate (LOESTIN 24 FE) 1 mg-20 mcg (24)/75 mg (4) per tablet Take 1 (one) tablet by mouth daily . 84 tablet 3 amoxicillin-clavulanate (AUGMENTIN) 875-125 mg per tablet Take 1 (one) tablet by mouth 2 (two) times a day for 7 days . 14 tablet 0 azithromycin (Zithromax Z-Navneet) 250 MG tablet 2tabs po day1, 1tab po qd day 2-5 . (Patient not taking: Reported on 04/28/2023 .) 6 tablet 0 benzonatate (TESSALON) 200 MG capsule Take 1 (one) capsule (200 mg total) by mouth 3 (three) times a day as needed for cough . 20 capsule 0 predniSONE (DELTASONE) 20 MG tablet Take 3 tablets by mouth with breakfast for 5 days . (Patient not taking: Reported on 12/30/2021 .) 15 tablet 0 dureunlueprhskd-LW-kaqyXNJpljs (Capmist DM) 60-15-400 mg Tab Take 1 (one) tablet by mouth 3 (three)times a day for 7 days . 21 tablet 0 No current facility-administered medications for this visit. There are no Patient Instructions on file for this visit. documented in this [id number] Instructions* Patient Instructions* Williams Blackmon MD - 12/11/2022 8:00 PM EDT Use OTC ibuprofen or Tylenol as needed for pain or fever. Please follow bottle instruction for appropriate dosing. documented in this [id number] History of Present illness Narrative* Williams Blackmon MD - 12/11/2022 7:55 PM EDT Images from the original note were not included. Patient Name: [facility] Location: [place] [address] Date Of : Date Of Visit: 1995 12/11/2022 MRN# Provider: [id number] Williams Blackmon MD Chief Complaint Patient presents with URI Cough, congestion, ST x [place], fever 102, took 2 at home covid neg, body aches, chills, OTC meds no relief Assessment & Plan 1. Bronchitis Return if symptoms worsen or fail to improve. Subjective 27 y.o. female presents with URI (Cough, congestion, ST x [place], fever 102, took 2 at home covid neg, body aches, chills, OTC meds no relief) Cough This is a new problem. Episode onset: x 4 days. The cough is Productive of sputum. Associated symptoms include a fever and a sore throat. Pertinent negatives include no shortness of breath. Associated symptoms comments: Multiple home COVID test all negative. . She has tried OTC cough suppressant for the symptoms. The treatment provided no relief. Review Of Systems Review of Systems Constitutional: Positive for fever. HENT: Positive for sore throat. Respiratory: Positive for cough. Negative for shortness of breath. Medical History History reviewed. No pertinent past medical history. Past Surgical History: Procedure Laterality Date TONSILLECTOMY There is no problem list on file for this patient. Social History Social History Tobacco Use Smoking status: Never Smokeless tobacco: Never Vaping Use Vaping Use: Never used Substance Use Topics Alcohol use: Yes Comment: socially Drug use: Never Family History Family History Problem Relation Age of Onset No Known Problems Mother No Known Problems Father Objective Physical Exam BP 113/75 Pulse 80 Temp 98 F (36.7 C) (Tympanic) Resp 16 Ht 5' 6 Wt 122.5 kg (270 lb) SpO2 97% BMI 43.58 kg/m Vision/Hearing Exam:No results found. Physical Exam Constitutional: Appearance: Normal appearance. HENT: Nose: Congestion present. No rhinorrhea. Mouth/Throat: Pharynx: No oropharyngeal exudate or posterior oropharyngeal erythema. Eyes: Extraocular Movements: Extraocular movements intact. Conjunctiva/sclera: Conjunctivae normal. Pupils: Pupils are equal, round, and reactive to light. Cardiovascular: Pulses: Normal pulses. Heart sounds: Normal heart sounds. Pulmonary: Breath sounds: Normal breath sounds. Musculoskeletal: Cervical back: Normal range of motion. Neurological: Mental Status: She is alert and oriented to person, place, and time. Procedure Notes Procedures Results No results found for this or any previous visit (from the past 168 hour(s)). No orders to display Orders Placed This Visit No orders of the defined types were placed in this encounter. Medication List At End Of Visit Current Outpatient Medications Medication Sig Dispense Refill norethindrone-ethinyl estradiol-ferrous fumarate (LOESTIN 24 FE) 1 mg-20 mcg (24)/75 mg (4) per tablet Take 1 (one) tablet by mouth daily . 84 tablet 3 azithromycin (Zithromax Z-Navneet) 250 MG tablet 2tabs po day1, 1tab po qd day 2-5 . 6 tablet 0 predniSONE (DELTASONE) 20 MG tablet Take 3 tablets by mouth with breakfast for 5 days . (Patient not taking: Reported on 12/30/2021 .) 15 tablet 0 pyrilamine-dextromethorphan ([place] DM) 7.5-7.5 mg/5 mL Liqd Take 10 mL by mouth every 6 to 8 hoursas needed . 180 mL 0 No current facility-administered medications for this visit. Patient Instructions Use OTC ibuprofen or Tylenol as needed for pain or fever. Please follow bottle instruction for appropriate dosing. documented in this [id number] History of Present illness Narrative* Magalys Benjamin MD - 05/14/2022 11:19 AM EDT Subjective annual exam Patient ID: [place] Strong is a 26 y.o. female. HPI: Patient presents for an annual exam. Patient states she has her menses during her sugar pills,however they last anywhere between 4 and 10 days and she has a lot of cramping with them as well. The following portions of the patient's history were reviewed and updated as appropriate: She has no past medical history on file. She does not have a problem list on file. She has no past surgical history on file. Her family history includes No Known Problems in her father and mother. She reports that she has never smoked. She has never used smokeless tobacco. She reports current alcohol use. She reports that she does not use drugs. Current Outpatient Medications Medication Sig Dispense Refill norethindrone-ethinyl estradiol-ferrous fumarate (LOESTIN 24 FE) 1 mg-20 mcg (24)/75 mg (4) per tablet Take 1 (one) tablet by mouth daily . 84 tablet 3 predniSONE (DELTASONE) 20 MG tablet Take 3 tablets by mouth with breakfast for 5 days . (Patient not taking: No sig reported) 15 tablet 0 No current facility-administered medications for this visit. Current Outpatient Medications on File Prior to Visit Medication Sig [DISCONTINUED] norgestimate-ethinyl estradioL 0.25-35 mg-mcg per tablet Take 1 (one) tablet by mouth daily . predniSONE (DELTASONE) 20 MG tablet Take 3 tablets by mouth with breakfast for 5 days . (Patient not taking: No sig reported) No current facility-administered medications on file prior to visit. She is allergic to cephalexin.. Review of Systems Constitutional: Negative for appetite change, chills, fatigue and fever. Respiratory: Negative for cough and shortness of breath. Cardiovascular: Negative for chest pain and palpitations. Gastrointestinal: Negative for abdominal pain, constipation, diarrhea, nausea and vomiting. Endocrine: Negative. Genitourinary: Negative. Skin: Negative. Psychiatric/Behavioral: Negative. Objective Vitals: 05/14/22 1054 BP: 124/85 Pulse: 61 Weight: 131.1 kg (289 lb) Height: 5' 6 Physical Exam Vitals and nursing note reviewed. Constitutional: Appearance: She is well-developed. HENT: Head: Normocephalic and atraumatic. Neck: Thyroid: No thyromegaly. Cardiovascular: Rate and Rhythm: Normal rate and regular rhythm. Heart sounds: No murmur heard. Pulmonary: Effort: Pulmonary effort is normal. No respiratory distress. Breath sounds: Normal breath sounds. No wheezing or rales. Chest: Breasts: Breasts are symmetrical. Right: No mass, nipple discharge, skin change or tenderness. Left: No mass, nipple discharge, skin change or tenderness. Abdominal: General: There is no distension. Palpations: Abdomen is soft. There is no mass. Tenderness: There is no abdominal tenderness. There is no guarding or rebound. Genitourinary: General: Normal vulva. Exam position: Lithotomy position. Labia: Right: No rash or lesion. Left: No rash or lesion. Vagina: Normal. No bleeding. Cervix: Normal. Uterus: Normal. Not enlarged and not tender. Adnexa: Right: No mass, tenderness or fullness. Left: No mass, tenderness or fullness. Lymphadenopathy: Cervical: No cervical adenopathy. Upper Body: Right upper body: No supraclavicular or axillary adenopathy. Left upper body: No supraclavicular or axillary adenopathy. Assessment/Plan: Diagnoses and all orders for this visit: Encounter for well woman exam with routine gynecological exam Encounter for initial prescription of contraceptive pills Prolonged menses on current KIMBERLYN's. Will change COCs to 24/4 formulation. Follow up prn. Other orders - norethindrone-ethinyl estradiol-ferrous fumarate (LOESTIN 24 FE) 1 mg-20 mcg (24)/75 mg (4) per tablet; Take 1 (one) tablet by mouth daily . documented in this [id number] Instructions* Patient Instructions* Williams Blackmon MD - 12/30/2021 4:52 PM EDT Use OTC ibuprofen or Tylenol as needed for pain or fever. Please follow bottle instruction for appropriate dosing. documented in this [id number] History of Present illness Narrative* Williams Blackmon MD - 12/30/2021 4:46 PM EDT Images from the original note were not included. Patient Name: [facility] Location: [place] [address] Date Of : Date Of Visit: 1995 12/30/2021 MRN# Provider: [id number] Williams Blackmon MD Chief Complaint Patient presents with Sore Throat Wants a throat culture per her pcp, sore throat and difficulty swallowing since oct Assessment & Plan 1. Sore throat Throat Aerobic Culture Throat Aerobic Culture No follow-ups on file. Subjective 26 y.o. female presents with Sore Throat (Wants a throat culture per her pcp, sore throat and difficulty swallowing since oct) Sore Throat This is a chronic problem. The current episode started more than 1 month ago. The problem has been waxing and waning. There has been no fever. Pertinent negatives include no congestion, coughing, swollen glands or vomiting. Associated symptoms comments: Seen by ENT and treated with steroid and antib iotics. ENT requested a throat culture before tonsillectomy. . Review Of Systems Review of Systems HENT: Positive for sore throat. Negative for congestion. Respiratory: Negative for cough. Gastrointestinal: Negative for vomiting. Medical History History reviewed. No pertinent past medical history. History reviewed. No pertinent surgical history. There is no problem list on file for this patient. Social History Social History Tobacco Use Smoking status: Never Smoker Smokeless tobacco: Never Used Vaping Use Vaping Use: Never used Substance Use Topics Alcohol use: Yes Comment: socially Drug use: Never Family History Family History Problem Relation Age of Onset No Known Problems Mother No Known Problems Father Objective Physical Exam BP 116/79 Pulse 65 Temp 97.1 F (36.2 C) Resp 16 Wt 130.6 kg (288 lb) SpO2 99% BMI 46.48kg/m Vision/Hearing Exam:No exam data present Physical Exam HENT: Mouth/Throat: Pharynx: No oropharyngeal exudate. Comments: Tonsil right side 3+, left 2+ Eyes: Extraocular Movements: Extraocular movements intact. Conjunctiva/sclera: Conjunctivae normal. Pupils: Pupils are equal, round, and reactive to light. Cardiovascular: Rate and Rhythm: Normal rate. Musculoskeletal: Cervical back: Normal range of motion. Skin: Findings: No rash. Neurological: Mental Status: She is alert and oriented to person, place, and time. Procedure Notes Procedures Results No results found for this or any previous visit (from the past 168 hour(s)). No orders to display Orders Placed This Visit Orders Placed This Encounter Procedures Throat Aerobic Culture Medication List At End Of Visit Current Outpatient Medications Medication Sig Dispense Refill norgestimate-ethinyl estradioL 0.25-35 mg-mcg per tablet Take 1 (one) tablet by mouth daily . 84 tablet 3 predniSONE (DELTASONE) 20 MG tablet Take 3 tablets by mouth with breakfast for 5 days . (Patient not taking: Reported on 12/30/2021 .) 15 tablet 0 No current facility-administered medications for this visit. Patient Instructions Use OTC ibuprofen or Tylenol as needed for pain or fever. Please follow bottle instruction for appropriate dosing. documented in this [id number] Instructions* Patient Instructions* Kimberly Powers SCIENTIFIC PROGRAMMER - 11/26/2021 5:05 PM EST -take benadryl 25-50 mg at night to help you sleep -push fluids -prednisone 60 mg with food -let people know you are on steroids -if this happens again then please see ENT Seek medical attention if you have worsening symptoms or other concerns. Please follow up with your family doctor or one of your choosing with in 48 hours. You may find a provider through the [facility] Referral [facility] by calling or by visiting [email or web address] [place], Thank You for choosing [facility] for your medical needs. Marty Stearns MD [address] [place] [address] * Attachments The following attachments cannot be sent through Care Everywhere. * Tonsillitis ([place]) documented in this [id number] History of Present illness Narrative* Kimberly Powers CNP - 11/26/2021 4:46 PM EST Images from the original note were not included. Patient Name: [facility] Location: [address] [address] Date Of : Date Of Visit: 1995 11/26/2021 MRN# Provider: [id number] Kimberly Powers CNP Chief Complaint Patient presents with Sore Throat Throat swelling; tonsils swelling on visualization; hard to swallow; a little hard to breath; s/sx2 days ago Assessment & Plan 1. Tonsillar hypertrophy predniSONE (DELTASONE) 20 MG tablet No follow-ups on file. Medical Decision Making Tonsils +4 No signs of any infection noted. Steroid burst of 60 mg q day x 5 days. If reoccurs to see ENT To monitor for other symptoms If worsens to be seen again. If has difficulty breathing then to go to the ED Additional Clinical Comments Discussed over the counter medications for symptomatic management and side effects of medications. Recommended taking all medications with food and to stop medications if they develop any signs of anallergic reaction. Educated patient and/or guardian about signs and symptoms that would warrant further immediate evaluation. Recommended that they should return to urgent care, make an appointment with their family physician, or go to the emergency room if symptoms persist or get acutely worse. Recommended follow upwithin the next week with their PCP or to get established with a PCP soon in order to follow up appropriately. [facility] COVID-19 Mask Status: Does the patient have classic COVID-19 symptoms? No, the patient does not have COVID-19 symptoms, the patient WAS wearing a mask during the visit and I (the provider) WAS wearing a mask during the visit. Subjective 26 y.o. female presents with Sore Throat (Throat swelling; tonsils swelling on visualization; hard to swallow; a little hard to breath; s/s x2 days ago) Throat swelling; tonsils swelling on visualization; hard to swallow; a little hard to breath; s/sx2 days ago Slight allergy problems Some sinus congestion in her cheeks. Denies any other problems She is not sure if her tonsils have always been big. She is able to swallow but it hurts to swallow. Objective Review Of Systems Review of Systems Constitutional: Negative for chills and fever. HENT: Positive for sore throat. Negative for congestion, postnasal drip, rhinorrhea, sinus pressure, sinus pain and sneezing. Respiratory: Negative for cough, chest tightness, shortness of breath and wheezing. Gastrointestinal: Negative for diarrhea, nausea and vomiting. Musculoskeletal: Negative for arthralgias and myalgias. Neurological: Negative for dizziness, weakness and headaches. All other systems reviewed and are negative. Physical Exam BP 127/81 Pulse 80 Temp 98 F (36.7 C) Resp 16 Wt 132.5 kg (292 lb) SpO2 98% BMI 47.13 kg/m Vision/Hearing Exam:No exam data present Physical Exam Vitals and nursing note reviewed. Constitutional: General: She is not in acute distress. Appearance: Normal appearance. She is well-developed. She is not ill-appearing, toxic-appearing or diaphoretic. HENT: Head: Normocephalic and atraumatic. Jaw: There is normal jaw occlusion. No trismus. Right Ear: Tympanic membrane, ear canal and external ear normal. Left Ear: Tympanic membrane, ear canal and external ear normal. Nose: Nose normal. No congestion or rhinorrhea. Right Sinus: No maxillary sinus tenderness or frontal sinus tenderness. Left Sinus: No maxillary sinus tenderness or frontal sinus tenderness. Mouth/Throat: Mouth: Mucous membranes are moist. Pharynx: Oropharynx is clear. Uvula midline. No pharyngeal swelling, oropharyngeal exudate, posterior oropharyngeal erythema or uvula swelling. Tonsils: 4+ on the right. 4+ on the left. Comments: No anterior pilar erythema noted Eyes: Extraocular Movements: Extraocular movements intact. Conjunctiva/sclera: Conjunctivae normal. Pupils: Pupils are equal, round, and reactive to light. Cardiovascular: Rate and Rhythm: Normal rate and regular rhythm. Pulses: Normal pulses. Heart sounds: Normal heart sounds, S1 normal and S2 normal. No murmur heard. Pulmonary: Effort: Pulmonary effort is normal. No respiratory distress. Breath sounds: Normal breath sounds. No stridor. No wheezing, rhonchi or rales. Musculoskeletal: General: Normal range of motion. Cervical back: Normal range of motion and neck supple. No tenderness. Lymphadenopathy: Cervical: No cervical adenopathy. Skin: General: Skin is warm and dry. Neurological: General: No focal deficit present. Mental Status: She is alert and oriented to person, place, and time. Mental status is at baseline. Psychiatric: Attention and Perception: Attention normal. Mood and Affect: Mood normal. Behavior: Behavior normal. Behavior is cooperative. Thought Content: Thought content normal. Judgment: Judgment normal. Procedure Notes Procedures Results No results found for this or any previous visit (from the past 168 hour(s)). No orders to display Medical History History reviewed. No pertinent past medical history. There is no problem list on file for this patient. Social History Social History Socioeconomic History Marital status: Single Tobacco Use Smoking status: Never Smoker Smokeless tobacco: Never Used Vaping Use Vaping Use: Never used Substance and Sexual Activity Alcohol use: Yes Comment: socially Drug use: Never Sexual activity: Yes Partners: Male control/protection: None Orders Placed This Visit No orders of the defined types were placed in this encounter. Medication List At End Of Visit Current Outpatient Medications Medication Sig Dispense Refill norgestimate-ethinyl estradioL 0.25-35 mg-mcg per tablet Take 1 (one) tablet by mouth daily . 84 tablet 3 predniSONE (DELTASONE) 20 MG tablet Take 3 tablets by mouth with breakfast for 5 days . 15 tablet 0 No current facility-administered medications for this visit. Patient Instructions -take benadryl 25-50 mg at night to help you sleep -push fluids -prednisone 60 mg with food -let people know you are on steroids -if this happens again then please see ENT Seek medical attention if you have worsening symptoms or other concerns. Please follow up with your family doctor or one of your choosing with in 48 hours. You may find a provider through the [facility] Referral Service by calling or by visiting [email or web address] [place], Thank You for choosing [facility] for your medical needs. Marty Stearns MD [address] [facility] [place] [address], [place] [address] MEDICATION LIST AT END OF VISIT Current Outpatient Medications Medication Sig Dispense Refill norgestimate-ethinyl estradioL 0.25-35 mg-mcg per tablet Take 1 (one) tablet by mouth daily . 84 tablet 3 predniSONE (DELTASONE) 20 MG tablet Take 3 tablets by mouth with breakfast for 5 days . 15 tablet 0 No current facility-administered medications for this visit. For any new medications prescribed today, patient was educated about indications for the medication, how to take the medication and potential side effects of the medications. Follow up: Educated patient and/or guardian about signs and symptoms that would warrant further immediate evaluation. Recommended that they should return to urgent care, make an appointment with their family physician, or go to the emergency room if symptoms persist or get acutely worse. Recommended follow upwithin the next week with their PCP or to get established with a PCP soon in order to follow up appropriately. Pt has established PCP Pt needs to establish with a PCP. Given [facility] referral number. Kimberly Powers CNP Advanced Provider [facility] documented in this [id number] History of Present illness Narrative* Luc Contreras, - 09/17/2021 3:19 PM EST Chief Complaint Patient presents with URI ST s/s x3 days ago; cough; luis alberto; covid negative at home SUBJECTIVE 26 y.o. 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 Has been vaccinated for Covid. Has been having yellow productive cough nasal congestion sore throat for last 3 days had negative home Covid test done recently. Hurts when she swallows able to swallow food and fluids. MEDICAL ISSUES History reviewed. No pertinent past medical history. There is no problem list on file for this patient. SOCIAL HISTORY Social History Socioeconomic History Marital status: Single Tobacco Use Smoking status: Never Smoker Smokeless tobacco: Never Used Vaping Use Vaping Use: Never used Substance and Sexual Activity Alcohol use: Yes Comment: socially Drug use: Never Sexual activity: Yes Partners: Male control/protection: None FAMILY HISTORY Family History Problem Relation Age of Onset No Known Problems Mother No Known Problems Father REVIEW OF SYSTEMS Review of Systems Constitutional: Negative for activity change, chills and fever. HENT: Positive for congestion and sore throat. Eyes: Negative for discharge. Respiratory: Positive for cough. Negative for shortness of breath. Cardiovascular: Negative for chest pain. Gastrointestinal: Negative for abdominal pain, nausea and vomiting. Genitourinary: Negative for dysuria and frequency. Musculoskeletal: Negative for back pain. Skin: Negative for rash. Neurological: Negative for dizziness and headaches. Psychiatric/Behavioral: Negative for behavioral problems. All other systems reviewed and are negative. MEDICATIONS PRIOR TO VISIT Current Outpatient Medications on File Prior to Visit Medication Sig Dispense Refill norgestimate-ethinyl estradioL 0.25-35 mg-mcg per tablet Take 1 (one) tablet by mouth daily . 84 tablet 3 No current facility-administered medications on file prior to visit. ALLERGIES/INTOLERANCES Allergies Allergen Reactions Cephalexin OBJECTIVE Pulse 87 Temp 98 F (36.7 C) Resp 16 SpO2 98% Physical Exam Vitals and nursing note reviewed. Constitutional: Appearance: Normal appearance. HENT: Head: Normocephalic and atraumatic. Nose: Nose normal. Mouth/Throat: Mouth: Mucous membranes are moist. Comments: Posterior pharynx erythemic without exudate. No obstruction noted. Uvula midline. Well-hydrated. Eyes: General: No scleral icterus. Pupils: Pupils are equal, round, and reactive to light. Cardiovascular: Rate and Rhythm: Normal rate and regular rhythm. Pulmonary: Effort: Pulmonary effort is normal. Breath sounds: Normal breath sounds. Abdominal: General: Abdomen is flat. Tenderness: There is no abdominal tenderness. Musculoskeletal: General: No signs of injury. Normal range of motion. Skin: General: Skin is warm and dry. Capillary Refill: Capillary refill takes less than 2 seconds. Findings: No rash. Neurological: Mental Status: She is alert. Psychiatric: Mood and Affect: Mood normal. PROCEDURE Procedures Results Recent Results (from the past 168 hour(s)) COVID-19/Influenza A,B Molecular Collection Time: 09/16/21 10:27 AM Specimen: Nasopharyngeal; Swab Result Value Ref Range SARS-CoV-2 RNA Not Detected Not Detected Influenza A Not Detected Not Detected Influenza B Not Detected Not Detected POC Strep A - Molecular Collection Time: 09/17/21 3:06 PM Result Value Ref Range Strep A Screen Negative Negative No orders to display ASSESSMENT/PLAN (expressed as patient instructions): 1. Suspected COVID-19 virus infection COVID-19, Molecular 2. Sore throat POC Strep A - Molecular No follow-ups on file. ADDITIONAL CLINICAL COMMENTS Rapid strep was negative. Patient had a Covid testing done as a send out test with results pending at the present time. Patient discharged with Covid instructions and return precautions. Discussed over the counter medications for symptomatic management and side effects of medications. Recommended taking all medications with food and to stop medications if they develop any signs of anallergic reaction. Educated patient and/or guardian about signs and symptoms that would warrant further immediate evaluation. Recommended that they should return to urgent care, make an appointment with their family physician, or go to the emergency room if symptoms persist or get acutely worse. Recommended follow upwithin the next week with their PCP or to get established with a PCP soon in order to follow up appropriately. ORDERS PLACED THIS VISIT Orders Placed This Encounter Procedures COVID-19, Molecular POC Strep A - Molecular MEDICATION LIST AT END OF VISIT Current Outpatient Medications Medication Sig Dispense Refill norgestimate-ethinyl estradioL 0.25-35 mg-mcg per tablet Take 1 (one) tablet by mouth daily . 84 tablet 3 No current facility-administered medications for this visit. documented in this [id number] Instructions* Patient Instructions* Luc Contreras DO - 09/17/2021 2:53 PM EST Images from the original note were not included. Patient Name: [facility] Location: Jaimie Strong [address] [place] [address] Date Of : Date Of Visit: 1995 09/17/2021 To Whom it May Concern: As of this time, Jaimie Strong has been tested for COVID-19 and results are PENDING. If able, it is recommended that they network strategist until they are released from quarantine or isolation per for guidelines below. If employee/student tests POSITIVE for COVID-19: It is not recommended by the CDC to have another COVID-19 test done in order to discontinue isolation or return to work/school. We can provide return to work and school documentation as needed. They should isolate until: - it has been 10 days since they developed symptoms AND - they have been without a fever (100.4 F) for at least 24 hours without the use of fever reducing medication AND - their symptoms are improving If employee/student is NOT fully vaccinated and tests NEGATIVE for COVID-19: Symptomatic for COVID-19 If they have COVID-19 symptoms (symptomatic) and they are under a 14 day quarantine because of significant exposure (which is defined as close contact with someone that has a laboratory confirmed infection from COVID-19 or a person that was diagnosed by a medical professional), then a negative COVID-19 test does not clear them from the 14 day quarantine. They were likely not clinically infectiousat the time of the test. This does not mean that they will not get sick and develop symptoms. It ispossible that they were in the early phase of the infection at the time of their test and they could be positive later. For these reasons: 1) If the test was due to having symptoms WITH significant exposure, they should remain in quarantine: - for the full 14 days AND - they have been without a fever (100.4 F) for at least 24 hours without the use of fever reducing medication AND - their symptoms are improving If they are unable to separate themselves completely from the COVID-19 positive person (i.e. parentcaring for a child), CDC guidelines recommend a quarantine for 24 days (10 days from symptom onset of the COVID positive person PLUS 14 additional days). 2) If the test was due to symptoms WITHOUT significant exposure, they may return to work/school if: - they have been without a fever (100.4 F) for at least 24 hours without the use of fever reducing medication AND - their symptoms are improving Asymptomatic for COVID-19 If they do not have any COVID-19 symptoms (asymptomatic): Employee/student and their provider decided together to do asymptomatic COVID-19 testing at this time. Their quarantine may end after 7 days if: - the COVID-19 test is done after day 5 (post exposure) - the COVID-19 test is negative (not detected) - they remain without symptoms (without symptom reducing medications) during your quarantine - they continue to monitor symptoms for the full 14 days after exposure. If symptoms develop at anytime during these 14 days, they should self-isolate and contact their health care provider for further instructions as they may need further testing. If employee/student is FULLY VACCINATED and has SYMPTOMS or EXPOSURE to COVID-19: - If someone is fully vaccinated, and has close contact with someone who tested positive for COVID-19, they do not need to isolate/quarantine unless they have symptoms. - It is recommended that they get tested 3-5 days after last exposure date, whether or not they have symptoms. - They should wear a mask in public for 14 days following last exposure date or until they have a negative test. - If they have any symptoms after an exposure, they should immediately self- isolate. They will needa negative test to resume normal activity. Symptoms may be mild. - If they test positive for COVID and are fully vaccinated, follow the instructions above on what to do if you test positive. - People are considered fully vaccinated: 2 weeks after their second dose in a 2-dose series (such as Pfizer or Moderna vaccines) OR 2 weeks after a single- dose vaccine (such as Alhaji & Alhaji's Daya vaccine) As always, guidelines of quarantine and isolation are subject to change on a daily basis. For questions regarding COVID-19 or questions about testing: Call the [facility] ([facility]) Call Center Open 7 days a week 9am-8pm [phone]-[facility] ( ) Additional information is available from the Center of Disease Control (CDC) at: https://www.cdc.gov/coronavirus/2019-ncov/about/clahx-jeys-npyc.html Thanks! [facility] COVID-19 Post-swabbing Instructions We will do our best to update you as soon as we receive your test results, but if we had to send your test to be run at the lab, you may see the results on [facility] [employer] or receive a call from [facility] before we are able to contact you. You should receive a call from our COVID-19 results provider as soon as possible. If you test POSITIVE for COVID-19: Isolate until: - it has been 10 days since you developed symptoms AND - you have been without a fever (100.4 F) for at least 24 hours without the use of fever reducing medication AND - your symptoms are improving Isolation is when you test positive for COVID-19 and is meant to keep the infected person away fromall others, even in their own home. If you live with others, stay in a specific sick room or area and away from other people or animals, including pets. Use a separate bathroom, if available. It is not recommended by the CDC to have another COVID-19 test done in order to discontinue isolation or return to work/school. We can provide return to work and school documentation as needed. You should notify anyone within close contact with you (defined below) two days prior to your symptoms starting until 10 days after symptoms started, that they have been exposed while you were contagious. They should follow the instructions below on what quarantine/isolation is necessary based on their vaccination status, symptoms, and test results. If you are NOT FULLY VACCINATED and test NEGATIVE for COVID-19: Symptomatic for COVID-19 If you have COVID-19 symptoms (symptomatic) and you are under a 14 day quarantine because of significant exposure (which is defined as close contact with someone that has a laboratory confirmed infection from COVID-19 or a person that was diagnosed by a medical professional), then a negative COVID-19 test does not clear you from the 14 day quarantine. You were likely not clinically infectious at the time of the test. This does not mean that you will not get sick and develop symptoms. It is possible that you were in the early phase of the infection at the time of your test and you could be positive later. For these reasons: 1) If the test was due to having symptoms WITH significant exposure, you should remain in quarantine: - For the full 14 days AND - You have been without a fever (100.4 F) for at least 24 hours without the use of fever reducing medication AND - Your symptoms are improving If you are unable to separate yourself completely from the COVID-19 positive person (i.e. parent caring for a child), CDC guidelines recommend you quarantine for 24 days (10 days from symptom onset of the COVID positive person PLUS 14 additional days). CDC guidelines that shorten the quarantine period to less than 14 days do not apply to people with symptoms. 2) If the test was due to symptoms WITHOUT significant exposure, you may return to work/school if: - You have been without a fever (100.4 F) for at least 24 hours without the use of fever reducing medication AND - Your symptoms are improving If you are ASYMPTOMATIC, but were EXPOSED, and are NOT FULLY VACCINATED: If you do not have any COVID-19 symptoms (asymptomatic): 1) Without a COVID test, your quarantine may after 10 days since last exposure date if: - you remain without symptoms (without symptoms reducing medications) for the full 10 days since your last exposure to a known COVID-19 positive person - you continue to monitor symptoms for the full 14 days after exposure. If symptoms develop at any time during these 14 days, please self-isolate and contact your health care provider for further instructions as you may need further testing. 2) With a COVID test, your quarantine may end after 7 days if: - your COVID-19 test is done at least 5 days after last exposure - your COVID-19 test is negative (not detected) - you remain without symptoms (without symptom reducing medications) - you continue to monitor symptoms for the full 14 days after exposure. If symptoms develop at any time during these 14 days, please self-isolate and contact your health care provider for further instructions as you may need further testing. If you ARE FULLY VACCINATED and have SYMPTOMS or EXPOSURE to COVID-19: - If you are fully vaccinated, and you have had close contact with someone who tested positive for COVID-19, you do not need to isolate/quarantine unless you have symptoms. - It is recommended that you get tested 3-5 days after last exposure date, whether or not you have symptoms. - You should wear a mask in public for 14 days following last exposure date or until you have a negative test. - If you have any symptoms after an exposure, you should immediately self- isolate. You will need a negative test to resume normal activity. Symptoms may be mild. - If you test positive for COVID and are fully vaccinated, follow the instructions above on what todo if you test positive. - People are considered fully vaccinated: 2 weeks after their second dose in a 2-dose series (such as Pfizer or Moderna vaccines) OR 2 weeks after a single- dose vaccine (such as Alhaji & Alhaji's Daya vaccine) When Do I Self-Quarantine? You should quarantine if you are unvaccinated and have had a significant exposure which is defined as having been in close contact (as defined below) with someone that has a laboratory confirmed infection from COVID-19 or that person was diagnosed by a medical professional. This includes contact within 48 hours prior to when the COVID-19 positive person developed symptoms. You should also quarantine if you are vaccinated, but having symptoms. - Quarantine is used to keep someone who might have been exposed to COVID-19 away from others. - Quarantine helps prevent spread of disease that can occur before a person knows they are sick or if they are infected with the virus without feeling symptoms. - People in quarantine should stay home, separate themselves from others, monitor their health, andfollow directions from their state or local health department. What counts as close contact? - You were within 6 feet of someone who has COVID-19 for at least 15 minutes - You provided care at home to someone who is sick with COVID-19 - You had direct physical contact with the person (touched, hugged, or kissed them) - You shared eating or drinking utensils - They sneezed, coughed, or somehow got respiratory droplets on you When and How Will I Get Results? Tests performed in the clinic will be available within 15-20 minutes from initiation of test. If your test was sent out to the lab for testing, it could take anywhere from 1-5 days after your specimen is collected. The provider/practice who placed the order for your test will notify you of your results. - If you have an active [facility] account, and your COVID-19 test is negative (not detected), then you will be notified through your [facility] account. You should call the urgent care if you have any further questions. - If your COVID-19 test is positive (detected), you will receive a phone call to discuss your results and answer any questions you might have at that time. Please make sure [facility] has your updated phone number so we can contact you. [facility] will notify the [facility] of any positive results to comply with state regulations. What Happens if I Develop Worsening COVID-19 Symptoms? All patients should self-quarantine at home until they receive their test results. While self-quarantining, contact your PCP or return to the urgent care if you develop any of the following: - A fever of 103 degrees F (39.4 C) or higher - A fever that lasts more than 3 days without medication - A fever that returns after being gone for more than 24 hours - Chest pain or difficulty breathing - A worsening of current symptoms For work concerns, please contact your employer's HR department. What Do I Do If I am Sick? Stay Home: If you are sick, stay home from work, school, public places, and social gatherings Social Distance: maintain 6 feet of distance from other people. Monitor Your Symptoms: If you develop fever, shortness of breath, confusion, or any respiratory symptoms, please notify your doctor immediately Cover Your Cough: Cough and sneeze into your shirt sleeve or inner elbow. Do not cough into your hands or into the air. If available, cough into a tissue and throw it into a trash can. Wash Your Hands: Wash hands often with soap and warm water and/or alcohol based hand voting machine repairer, scrubbing your hands for at least 20 seconds. Wash your hands after sneezing or coughing, after going to the bathroom, and before eating or drinking. Wear a Mask: Wear a face mask when around others. Always wear a face mask (if able) if you have to leave your home Don't Touch: avoid touching your eyes, nose, and mouth Don't Share: avoid sharing items with others as they can spread infection Call First: If you do need to seek urgent medical care, call the facility first to let them know you are on your way Other COVID Questions? CDC - https://www.cdc.gov/coronavirus/2019-ncov/index.html - https://www.cdc.gov/coronavirus/2019-ncov/vs-bvx-pki-sick/quarantine.html [facility] - Website: https://coronavirus.[place].gov/wps/portal/gov/covid-19/home - Hotline: 770-3-BNU-OD (251-477-7321) [facility]: https://blog.[facility].com/series/dudgq-29-eanrlhkzrkk-toolkit/ Please call [facility] at [phone]) 9 am-8pm everyday for questions related to COVID -19. Viral Respiratory Infection: Care Instructions Your Care Instructions Viruses are very small organisms. They grow in number after they enter your body. There are many types that cause different illnesses, such as colds and the mumps. The symptoms of a viral respiratory infection often start quickly. They include a fever, sore throat, and runny nose. You may also just not feel well. Or you may not want to eat much. Most viral respiratory infections are not serious. They usually get better with time and self-care. Antibiotics are not used to treat a viral infection. That's because antibiotics will not help cure a viral illness. In some cases, antiviral medicine can help your body fight a serious viral infection. Follow-up care is a marcelino part of your treatment and safety. Be sure to make and go to all appointments, and call your doctor if you are having problems. It's also a good idea to know your test resultsand keep a list of the medicines you take. How can you care for yourself at home? Rest as much as possible until you feel better. Be safe with medicines. Take your medicine exactly as prescribed. Call your doctor if you think youare having a problem with your medicine. You will get more details on the specific medicine your doctor prescribes. Take an tqwb-qjk-lloyvzh pain medicine, such as acetaminophen (Tylenol), ibuprofen (Advil, Motrin),or naproxen (Aleve), as needed for pain and fever. Read and follow all instructions on the label. Do not give aspirin to anyone younger than 20. It has been linked to Liza syndrome, a serious illness. Drink plenty of fluids. Hot fluids, such as tea or soup, may help relieve congestion in your nose and throat. If you have kidney, heart, or liver disease and have to limit fluids, talk with your doctor before you increase the amount of fluids you drink. Try to clear mucus from your lungs by breathing deeply and coughing. Gargle with warm salt water once an hour. This can help reduce swelling and throat pain. Use 1 teaspoon of salt mixed in 1 cup of warm water. Do not smoke or allow others to smoke around you. If you need help quitting, talk to your doctor about stop-smoking programs and medicines. These can increase your chances of quitting for good. To avoid spreading the virus Cough or sneeze into a tissue. Then throw the tissue away. If you don't have a tissue, use your hand to cover your cough or sneeze. Then clean your hand. You can also cough into your sleeve. Wash your hands often. Use soap and warm water. Wash for 15 to 20 seconds each time. If you don't have soap and water near you, you can clean your hands with alcohol wipes or gel. When should you call for help? Call your doctor now or seek immediate medical care if: You have a new or higher fever. Your fever lasts more than 48 hours. You have trouble breathing. You have a fever with a stiff neck or a severe headache. You are sensitive to light. You feel very sleepy or confused. Watch closely for changes in your health, and be sure to contact your doctor if: You do not get better as expected. Where can you learn more? Log into your personal health record on https://[employer] and enter Q795 in the Education box to learn more about Viral Respiratory Infection: Care Instructions. Current as of: March 24, 2021 Content Version: 13.1 geolad. Care instructions adapted under license by your healthcare professional. If you have questions about a medical condition or this instruction, always ask your healthcare professional. [employer] disclaims any warranty or liability for your use of this information. Sore Throat: Care Instructions Overview Infection by bacteria or a virus causes most sore throats. Cigarette smoke, dry air, air pollution,allergies, and yelling can also cause a sore throat. Sore throats can be painful and annoying. Fortunately, most sore throats go away on their own. If you have a bacterial infection, your doctor may prescribe antibiotics. Follow-up care is a marcelino part of your treatment and safety. Be sure to make and go to all appointments, and call your doctor if you are having problems. It's also a good idea to know your test resultsand keep a list of the medicines you take. How can you care for yourself at home? If your doctor prescribed antibiotics, take them as directed. Do not stop taking them just because you feel better. You need to take the full course of antibiotics. Gargle with warm salt water several times a day to help reduce swelling and relieve pain. Mix 1/2 teaspoon of salt in 1 cup of warm water. Take an vkbi-mqa-tdpxrhr pain medicine, such as acetaminophen (Tylenol), ibuprofen (Advil, Motrin),or naproxen (Aleve). Read and follow all instructions on the label. Be careful when taking ucql-tbb-wqrapge cold or flu medicines and Tylenol at the same time. Many ofthese medicines have acetaminophen, which is Tylenol. Read the labels to make sure that you are nottaking more than the recommended dose. Too much acetaminophen (Tylenol) can be harmful. Drink plenty of fluids. Fluids may help soothe an irritated throat. Hot fluids, such as tea or soup, may help decrease throat pain. Use qxsa-zgg-lsuviix throat lozenges to soothe pain. Regular cough drops or hard candy may also help. These should not be given to young children because of the risk of choking. Do not smoke or allow others to smoke around you. If you need help quitting, talk to your doctor about stop-smoking programs and medicines. These can increase your chances of quitting for good. Use a vaporizer or humidifier to add moisture to your bedroom. Follow the directions for cleaning the machine. When should you call for help? Call your doctor now or seek immediate medical care if: You have trouble breathing. Your sore throat gets much worse on one side. You have new or worse trouble swallowing. You have a new or higher fever. Watch closely for changes in your health, and be sure to contact your doctor if you do not get better as expected. Where can you learn more? Log into your personal health record on https://[email or web address]CM and enter U420 in the Education box to learn more about Sore Throat: Care Instructions. Current as of: May 27, 2021 Content Version: 13.1 geolad. Care instructions adapted under license by your healthcare professional. If you have questions about a medical condition or this instruction, always ask your healthcare professional. [employer] disclaims any warranty or liability for your use of this information. documented in this [id number] History of Present illness Narrative* Magalys Benjamin MD - 04/27/2021 3:21 PM EDT Subjective Annual exam Patient ID: Jaimie Strong is a 25 y.o. female. HPI: Patient presents for an annual exam. Patient states menses regular, last approximately 5 to 7 days, but the first days are very heavy and she has been having a lot of cramping. Patient is sexually active. States has completed her HPV vaccines. 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 The following portions of the patient's history were reviewed and updated as appropriate: She has no past medical history on file. She does not have a problem list on file. She has no past surgical history on file. Her family history includes No Known Problems in her father and mother. She reports that she has never smoked. She has never used smokeless tobacco. She reports current alcohol use. She reports that she does not use drugs. Current Outpatient Medications Medication Sig Dispense Refill norgestimate-ethinyl estradioL 0.25-35 mg-mcg per tablet Take 1 (one) tablet by mouth daily . 84 tablet 3 No current facility-administered medications for this visit. No current outpatient medications on file prior to visit. No current facility-administered medications on file prior to visit. She is allergic to cephalexin.. Review of Systems Constitutional: Negative for appetite change, chills, fatigue and fever. Respiratory: Negative for cough and shortness of breath. Cardiovascular: Negative for chest pain and palpitations. Gastrointestinal: Negative for abdominal pain, constipation, diarrhea, nausea and vomiting. Endocrine: Negative. Genitourinary: Positive for menstrual problem. Skin: Negative. Psychiatric/Behavioral: Negative. Objective Vitals: 04/27/21 1441 BP: 120/74 Pulse: 86 Weight: 134.3 kg (296 lb) Height: 5' 6 Physical Exam Vitals and nursing note reviewed. Constitutional: Appearance: She is well-developed. HENT: Head: Normocephalic and atraumatic. Neck: Thyroid: No thyromegaly. Cardiovascular: Rate and Rhythm: Normal rate and regular rhythm. Heart sounds: No murmur heard. Pulmonary: Effort: Pulmonary effort is normal. No respiratory distress. Breath sounds: Normal breath sounds. No wheezing or rales. Chest: Breasts: Breasts are symmetrical. Right: No mass, nipple discharge, skin change or tenderness. Left: No mass, nipple discharge, skin change or tenderness. Abdominal: General: There is no distension. Palpations: Abdomen is soft. There is no mass. Tenderness: There is no abdominal tenderness. There is no guarding or rebound. Genitourinary: Exam position: Supine. Labia: Right: No lesion. Left: No lesion. Vagina: Normal. No vaginal discharge or bleeding. Cervix: No cervical motion tenderness or discharge. Uterus: Not enlarged and not tender. Adnexa: Right: No mass, tenderness or fullness. Left: No mass, tenderness or fullness. Lymphadenopathy: Cervical: No cervical adenopathy. Upper Body: Right upper body: No supraclavicular or axillary adenopathy. Left upper body: No supraclavicular or axillary adenopathy. Assessment/Plan: Diagnoses and all orders for this visit: Encounter for gynecological examination without abnormal finding - Chlamydia/GC/Trichomonas Amplified RNA - Thinprep Pap Smear Options of KIMBERLYN's, depo-provera, IUDs, Nexplanon, Nuvaring discussed at length. Patient wishes to try KIMBERLYN's. Instructions and precautions given. Patient aware of increased risks of DVT, PE, HI and stroke. Also aware risks increase with smoking. Safer sex practices discussed. Encounter for initial prescription of contraceptive pills - norgestimate-ethinyl estradioL 0.25-35 mg-mcg per tablet; Take 1 (one) tablet by mouth daily . Follow-up in 1 month for blood pressure check. [facility] Diagnosis Encounter for gynecological examination without abnormal finding- Primary Encounter for initial prescription of contraceptive pills [facility] Diagnosis Encounter for initial prescription of contraceptive pills [facility] Diagnosis Suspected COVID-19 virus infection- Primary Sore throat Acute pharyngitis [facility]* Diagnosis Tonsillar hypertrophy- Primary Hypertrophy of tonsils alone documented in this encounter [facility] noteNo assessment information availableWSouthwest [facility] Work Phone: Evaluation note* Diagnosis Sore throat- Primary Acute pharyngitis [facility] Diagnosis Encounter for initial prescription of contraceptive pills [facility] Diagnosis Encounter for well woman exam with routine gynecological exam- Primary Encounter for initial prescription of contraceptive pills [facility] Diagnosis Bronchitis- Primary Bronchitis, not specified as acute or chronic [facility]* Diagnosis Acute rhinosinusitis- Primary [facility] Diagnosis Encounter for well woman exam with routine gynecological exam- Primary Encounter for surveillance of contraceptive pills Other depression [facility] Diagnosis Adjustment disorder with mixed anxiety and depressed mood- Primary Other depression Current moderate episode of major depressive disorder without prior episode (HCC) PORTER (generalized anxiety disorder) Generalized anxiety disorder [facility]* Diagnosis Adjustment disorder with mixed anxiety and depressed mood- Primary MDD (major depressive disorder), single episode, mild (HCC) PORTER (generalized anxiety disorder) Generalized anxiety disorder [facility]* Diagnosis MDD (major depressive disorder), recurrent episode, mild (HCC)- Primary PORTER (generalized anxiety disorder) Generalized anxiety disorder [facility]* Diagnosis Encounter for surveillance of contraceptive pills [facility] Diagnosis MDD (major depressive disorder), recurrent episode, mild (HCC)- Primary PORTER (generalized anxiety disorder) Generalized anxiety disorder PTSD (post-traumatic stress disorder) Posttraumatic stress disorder [facility]* Diagnosis Encounter for surveillance of contraceptive pills [facility] Diagnosis Encounter for surveillance of contraceptive pills [facility] Diagnosis Encounter for well woman exam with routine gynecological exam- Primary Encounter for surveillance of contraceptive pills Cervical cancer screening Screening for malignant neoplasm of the cervix [facility] Diagnosis MDD (major depressive disorder), recurrent episode, mild- Primary PORTER (generalized anxiety disorder) Generalized anxiety disorder [facility] Diagnosis Generalized anxiety disorder- Primary Chronic posttraumatic stress disorder Posttraumatic stress disorder Major depressive disorder, recurrent, in full remission Major depressive disorder, recurrent episode, in full remission Major depressive disorder, recurrent episode, severe, with psychotic behavior (HCC) [facility] Diagnosis Generalized anxiety disorder Major depressive disorder, recurrent, in full remission Major depressive disorder, recurrent episode, in full remission [facility]* Diagnosis Syncope and collapse- Primary Medication management Encounter for long-term (current) use of other medications Elevated blood pressure reading without diagnosis of hypertension documented in this encounter [facility] note* Diagnosis Syncope and collapse- Primary Vaso vagal episode Syncope and collapse Hyperlipidemia, mixed Mixed hyperlipidemia Concussion without loss of consciousness, sequela documented [facility] Attachments The following attachments cannot be sent through Care Everywhere. * Sinusitis: Acute ([place]) [facility] Advance Directives No Advanced Directives Records FoundDocuments on File Type Date Recorded Patient News Writer Expl anation Advance Directives and Living Will Advance Directive Response Recorded Date/ Time Living Will No February 19, 2019 1 1:39pm Power of Human Resource Internship No February 19, 2019 11:39pm Documents on File Type Date Recorded Patient News Writer Expl anation Advance Directives and Livin g Will 12/01/2021 1:44 AM Advance Directive Response Recorded Date/ Time Living Will No July 03 9:14pm Power of Human Resource Internship No 2023 9:14pm Chief Complaint and Reason for Visit Chief Complaint TONSILLITIS Chief Complaint depression Summary Purpose Family History No Family History Records FoundNo Family History Records FoundNo Family History Records FoundNo Family History Records FoundNo Family History Records FoundNo Family History Records Found Reason for Referral Specialty Diagnoses / Procedures Referred By Contac t Referred To Contact Psychiatry Diagnoses Other depression Magalys Benjamin MD [address] [place] [address] Vilma Valadez MD [address] [address] Referral ID Status Reason Start Date Expiration Date V isits Requested Visits Authorized [id number] Authorized 08/09/2023 08/08/2024 1 1 Additional Source Comments Reason for Visit (unrecogniz ed section and content) Reason Comments Annual Exam LAY OUT FORMER to practice, here for KRISTEN, discuss BC Reason Onset Date Comments Medication Refill 06/23/2021 Reason Onset Date Comments Medication Refill 07/24/[address] s/s x3 days ago; cough; luis alberto; covid negative at home Reason Comments Sore Throat Throat swelling; ton sils swelling on visualization; hard to swallow; a little hard to breath; s/s x2 days ago Reason Comments Sore Throat Wants a throat cultu re per her pcp, sore throat and difficulty swallowing since oct Reason Onset Date Comments Medication Refill 03/17/2022 Reason Comments Annual Exam KRISTEN Having irregular periods, really bad cramps and lasting longer then normal. Pap:04/27/21Normal Reason Comments URI Cough, congestion, S T x Tuesday, fever 102, took 2 at home covid neg, body aches, chills, OTC meds no relief Reason Comments URI Starting Tuesday had a bad cough, congestion, drainage and sore throat hurts to breathe chest feels like a rattle Reason Comments Annual Exam Here for KRISTEN, PAP 2020 NILM, denies concerns, happy with current OCP Specialty Diagnoses / Procedures Referred By Millie celaya Referred To Contact Psychiatry Diagnoses Other depression Magalys Benjamin MD [address] [place] [address] Curtis Gonzales, SCIENTIFIC PROGRAMMER [address] [place] [address] Referral ID Status Reason Start Date Expiration Date Visits Re quested Visits Authorized [id number] Closed 08/09/2023 08/08/2024 1 1 Reason Onset Date Comments Medication Refill 09/25/2023 Reason Onset Date Comments Medication Refill 10/25/2023 Reason Onset Date Comments Medication Refill 11/20/2023 Reason Onset Date Comments Medication Refill 09/26/2023 Reason Onset Date Comments Medication Refill 04/24/2024 Reason Onset Date Comments Medication Refill 07/26/2024 Reason Onset Date Comments Medication Refill 07/30/2024 Reason Comments Annual Exam No concerns.Needs re fill on Loestrin 24 FE.Pap 04/27/21= NEG Reason Comments Appointment Reason Onset Date Comments Medication Refill 10/29/2024 Reason Comments Anxiety PTSD Reason Onset Date Comments Medication Refill 03/29/2025 Reason Comments Heart monitor Reason Comments Acute Visit Syncopal episodes si nce last June, no occurring more frequently; accompanied with tunnel vision prior to syncopal episodes Reason Onset Date Comments Refill Request 05/06/2025 Reason Comments Follow Up For Heart tests & weight loss medication Care Teams (unrecognized sec tion and content) Greenskeeper Relationship Specialty Start Date End Date No, Physician [facility] PCP - General 04/27/21 Greenskeeper Relationship Specialty Start Date End Date No, Physician [facility] PCP - General 04/27/21 Greenskeeper Relationship Specialty Start Date End Date No, Physician [facility] PCP - General 04/27/21 Greenskeeper Relationship Specialty Start Date End Date No, Physician [facility] PCP - General 04/27/21 Greenskeeper Relationship Specialty Start Date End Date No, Physician [facility] PCP - General 04/27/21 Greenskeeper Relationship Specialty Start Date End Date No, Physician [facility] PCP - General 04/27/21 Team Status: Active Member Role Status Dates Dr. Damian Thomas , Family Provider Active Team Status: Inactive Member Role Status Dates Dr. Isacc Prince MD Emergency Provider Active Greenskeeper Relationship Specialty Start Date End Date No, Physician [facility] PCP - General 04/27/21 Greenskeeper Relationship Specialty Start Date End Date No, Physician [facility] PCP - General 04/27/21 Greenskeeper Relationship Specialty Start Date End Date No, Physician [facility] PCP - General 04/27/21 Greenskeeper Relationship Specialty Start Date End Date No, Physician [facility] PCP - General 04/27/21 Greenskeeper Relationship Specialty Start Date End Date No, Physician [facility] PCP - General 04/27/21 Greenskeeper Relationship Specialty Start Date End Date No, Physician [facility] PCP - General 04/27/21 Greenskeeper Relationship Specialty Start Date End Date No, Physician [facility] PCP - General 04/27/21 Greenskeeper Relationship Specialty Start Date End Date No, Physician [facility] PCP - General 04/27/21 Greenskeeper Relationship Specialty Start Date End Date No, Physician [facility] PCP - General 04/27/21 Greenskeeper Relationship Specialty Start Date End Date No, Physician [facility] PCP - General 04/27/21 Greenskeeper Relationship Specialty Start Date End Date No, Physician [facility] PCP - General 04/27/21 Curtis Gonzales, SCIENTIFIC PROGRAMMER [address] [place] [address] Behavioral Health Provider Nurse Practitioner 07/26/24 Greenskeeper Relationship Specialty Start Date End Date No, Physician [facility] PCP - General 04/27/21 Curtis Gonzales, SCIENTIFIC PROGRAMMER [address] [place] [address] Behavioral Health Provider Nurse Practitioner 07/26/24 Greenskeeper Relationship Specialty Start Date End Date No, Physician [facility] PCP - General 04/27/21 Curtis Gonzales, LESA [address] [place] [id number] Behavioral Health Provider Nurse Practitioner 07/26/24 Magalys Benjamin MD [address] [place] [address] Consulting Physician Obstetrics/Gynecology 09/21/24 Greenskeeper Relationship Specialty Start Date End Date Damian Thomas DO [address] [place] [address] PCP - General Family Medicine 11/15/17 Carolynn Sanz, MASTER IN CHANCERY.SCIENTIFIC PROGRAMMER [address] [place], [place] [address] Interventional Radiologist Family Medicine 08/26/24 Inderjit Stewart, PACHECO.SCIENTIFIC PROGRAMMER [address] [place], [place] [id number] Interventional Radiologist Family Medicine 08/26/24 Greenskeeper Relationship Specialty Start Date End Date No, Physician [facility] PCP - General 04/27/21 Curtis Gonzales, SCIENTIFIC PROGRAMMER [address] [place] [phone] Behavioral Health Provider Nurse Practitioner 07/26/24 Magalys Benjamin MD [address] [place] [phone] Consulting Physician Obstetrics/Gynecology 09/21/24 Greenskeeper Relationship Specialty Start Date End Date No, Physician [facility] PCP - General 04/27/21 Curtis Gonzales CNP [address] [place] [phone] Behavioral Health Provider Nurse Practitioner 07/26/24 Magalys Benjamin MD [address] [place] [phone] Consulting Physician Obstetrics/Gynecology 09/21/24 Greenskeeper Relationship Specialty Start Date End Date No, Physician [facility] PCP - General 04/27/21 Curtis Gonzales, LESA [address] [place] [phone] Behavioral Health Provider Nurse Practitioner 07/26/24 Magalys Benjamin MD [address] [place] [phone] Consulting Physician Obstetrics/Gynecology 09/21/24 Greenskeeper Relationship Specialty Start Date End Date No, Physician [facility] PCP - General 04/27/21 Magalys Benjamin MD [address] [place] [phone] Consulting Physician Obstetrics/Gynecology 09/21/24 Bandar Hoover, LESA [address] [place] [address] Nurse Practitioner Psychiatry 12/13/24 Greenskeeper Relationship Specialty Start Date End Date Damian Thomas DO [address] [place] [address] PCP - General Family Medicine 11/15/17 Inderjit Stewart, MASTER IN CHANCERY.SCIENTIFIC PROGRAMMER [address] [place] [address] Interventional Radiologist Family Medicine 08/26/24 Kira Yen, MASTER IN CHANCERY.SCIENTIFIC PROGRAMMER [address] [place] [address] Interventional Radiologist Family Medicine 03/04/25 Greenskeeper Relationship Specialty Start Date End Date Damian Thomas DO [address] [place] [address] PCP - General Family Medicine 11/15/17 AlvaroInderjit, MASTER IN CHANCERY.SCIENTIFIC PROGRAMMER [address] [place] [address] Interventional Radiologist Family Medicine 08/26/24 Kira Yen, MASTER IN CHANCERY.SCIENTIFIC PROGRAMMER [address] [place] [address] Interventional Radiologist Family Medicine 03/04/25 Greenskeeper Relationship Specialty Start Date End Date Damian Thomas DO [address] [place] [address] PCP - General Family Medicine 11/15/17 Inderjit Stewart, PACHECO.SCIENTIFIC PROGRAMMER [address] [place] [address] Interventional Radiologist Family Medicine 08/26/24 Kira Yen, MASTER IN CHANCERY.SCIENTIFIC PROGRAMMER [address] [place] [address] Interventional Radiologist Family Medicine 03/04/25 Greenskeeper Relationship Specialty Start Date End Date Damian Thomas DO [address] [place] [address] PCP - General Family Medicine 11/15/17 AlvaroInderjit, MASTER IN CHANCERY.SCIENTIFIC PROGRAMMER [address] [place] [address] Interventional Radiologist Family Medicine 08/26/24 Kira Yen, MASTER IN CHANCERY.SCIENTIFIC PROGRAMMER [address] [place] [address] Interventional Radiologist Family [facility] 03/04/25 Greenskeeper Relationship Specialty Start Date End Date Damian Thomas DO [address] [place] [address] PCP - General Family Medicine 11/15/17 AlvaroInderjit, MASTER IN CHANCERY.SCIENTIFIC PROGRAMMER [address] [place] [address] Interventional Radiologist Family Medicine 08/26/24 Kira Yen, MASTER IN CHANCERY.SCIENTIFIC PROGRAMMER [address] [place] [address] Interventional Radiologist Family Medicine 03/04/25 Goals (unrecognized section and content) Goals may be documented in a n alternate sectionGoals may be documented in an alternate section INFORMATION SOURCE (unrecogn ized section and content) DATE CREATED AUTHOR 12/26/2021 [facility] DATE CREATED AUTHOR AUTHOR'S ORGANIZ ATION 04/29/2023 [facility] DATE CREATED AUTHOR AUTHOR'S ORGANIZ ATION [facility] DATE CREATED AUTHOR AUTHOR'S ORGANIZ ATION 03/07/2025 [facility] DATE CREATED AUTHOR AUTHOR'S ORGANIZ ATION 04/29/2025 [facility] DATE CREATED AUTHOR AUTHOR'S ORGANIZ ATION 06/04/2025 [facility] Source Comments (unrecognize d section and content) In the event this informatio n is protected by the Federal Confidentiality of Alcohol and Drug Abuse Patient Records regulations: The Federal rules restrict any use of the information to criminally investigate or prosecute any alcohol or drug abuse patient.[facility] the event this information is protected by the Federal Confidentiality of Alcohol and Drug Abuse Patient Records regulations: The Federal rules restrict any use of the information to criminally investigate or prosecute any alcohol or drug abuse patient.[facility] Center[facility] the event this information is protected by the Federal Confidentiality of Alcohol and Drug Abuse Patient Records regulations: The Federal rules restrict any use of the information to criminally investigate or prosecute any alcohol or drug abuse patient.[facility] CenterIn the event this information is protected by the Federal Confidentiality of Alcohol and Drug Abuse Patient Records regulations: The Federal rules restrict any use of the information to criminally investigate or prosecute any alcohol or drug abuse patient.[facility] CenterIn the event this information is protected by the Federal Confidentiality of Alcohol and Drug Abuse Patient Records regulations: The Federal rules restrict any use of the information to criminally investigate or prosecute any alcohol or drug abuse patient.[facility] Center[facility] the event this information is protected by the Federal Confidentiality of Alcohol and Drug Abuse Patient Records regulations: The Federal rules restrict any use of the information to criminally investigate or prosecute any alcohol or drug abuse patient.[facility] CenterIn the event this information is protected by the Federal Confidentiality of Alcohol and Drug Abuse Patient Records regulations: The Federal rules restrict any use of the information to criminally investigate or prosecute any alcohol or drug abuse patient.[facility] FOR RECORDS PERTAINING TO PATIENTS WHO ARE OR HAVE BEEN ENROLLED IN A CHEMICAL DEPENDENCY/SUBSTANCEABUSE PROGRAM, SOME INFORMATION MAY BE OMITTED. This clinical summary was aggregated from multiple sources. Caution should be exercised in using it in the provision of clinical care. This summary normalizes information from multiple sources, and as a consequence, information in this document may materially change the coding, format and clinical context of patient data. In addition, data may be omitted in some cases. CLINICAL DECISIONS SHOULD BE BASED ON THE PRIMARY CLINICAL RECORDS. [facility] [employer] [facility]. provides no warranty or guarantee of the accuracy or completeness of information in this document.
== END 2025-06-12 21:41 | disposition left against medical advice (07) ==
LOC: ED 21:58
DX: R55 Syncope and collapse (principal)